=== PATIENT | male | born 1935 | race Caucasian/White ===

== ENCOUNTER 2018-11-21 08:15 | Inpatient (IN) ==
[2018-11-21] MEDS ORDERED: Aspirin 81 MG TAB.CHEW PO ONE (08:20)
--- NOTE | 2018-11-21 08:38 | Emergency Department Note ---
Disposition Clinical Impression: Chest pain Qualifiers: Chest pain type: unspecified Qualified Code(s): R07.9 - Chest pain, unspecified Disposition: Admitted As Inpatient Condition: Fair Time of Disposition: 10:22 Chest Pain HPI - General Chief Complaint: ED Chest Pain Stated Complaint: cp Time Seen by Provider: 11/21/18 08:20 Source: patient Mode of arrival: EMS Limitations: no limitations Vital Signs Reviewed: Yes Nursing Notes Reviewed: Yes - History of Present Illness HPI Narrative: Alert and oriented nontoxic-appearing 83-year-old male with a history of CAD (cardiac stents 2 on aspirin and Plavix), and hypertension presents by EMS from home for evaluation of abrupt onset of left-sided chest pressure. He states he was walking back from the restroom when the pain began. The pain did not radiate. He had taken 3 nitroglycerin tablets at home without relief. At that time, he decided to call EMS. EMS administered 4 baby aspirin in route. Upon his arrival, the patient states that his pain is nearly resolved. He denies any associated shortness of breath, productive cough, fever, chills, nausea, vomiting, diaphoresis, abdominal pain, pain with inspiration, hemoptysis, or pain/swelling of the lower extremities. Pt complaint: chest pain Onset (ago): Just [employer] Duration: other (Nearly resolved) Onset: during exertion Pain Location: left chest Severity scale (1-10): 2 Pain Radiation: none Worsens with: nothing Associated symptoms: Denies: nausea, vomiting, diaphoresis, dyspnea, syncope, pa lpitations, fever, cough, leg swelling Treatments prior to arrival chest pain: aspirin, nitroglycerin - Related Data Home Medications Medication Instructions Recorded Confirmed Atenolol [Tenormin] 50 mg PO DAILY 11/21/18 11/21/18 Clopidogrel [Plavix] 75 mg PO DAILY 11/21/18 11/21/18 Colchicine [Mitigare] 0.6 mg PO DAILY 11/21/18 11/21/18 Isosorbide MONOnitrate [Isosorbide 40 mg PO BID 11/21/18 11/21/18 Mononitrate] Nitroglycerin [Nitrostat] 0.4 mg SL PRN PRN 11/21/18 11/21/18 Allergies Allergy/AdvReac Type Severity Reaction Status Date / Time No Known Allergies Allergy Verified 11/21/18 08:41 All systems ED: reviewed and negative except as stated. Review of Systems: As Per HPI Constitutional: Denies: fever, chills, weakness, weight change Eyes: Denies: eye pain, eye discharge, vision change ENT ED: Denies: ear pain, throat pain, dental pain, hearing loss, epistaxis, congestion, dysphagia Cardiovascular: Reports: as per HPI, chest pain. Denies: palpitations, dyspnea on exertion, edema, syncope Respiratory: Denies: cough, dyspnea, wheezes, hemoptysis, stridor Gastrointestinal: Denies: abdominal pain, nausea, vomiting, diarrhea, constipation, hematemesis, melena, hematochezia Genitourinary: Denies: urgency, dysuria, frequency, hematuria Musculoskeletal: Denies: back pain, neck pain, arthralgia, myalgia Integumentary: Denies: rash, abrasion, lesions Neurological: Denies: headache, weakness, numbness, paresthesias, confusion, abnormal gait, vertigo Psychiatric: Denies: anxiety, depression, suicidal thoughts, homicidal thoughts, auditory hallucinations, visual hallucinations Endocrine: Denies: fatigue Hematological/Lymphatic: Denies: easy bleeding, easy bruising Allergic/Immunologic: Denies: facial swelling, urticaria Chest Pain PMH - Past Medical History Medical history: Reports: coronary artery disease, hyperlipidemia, hypertension, myocardial infarction Psychiatric history: Reports: no psych history - Social History Smoking Status: Never smoker Alcohol use: Reports: occasionally Drug use: Reports: none Physical Exam - General Limitations: no limitations General appearance: alert, in no apparent distress - Head Head exam: atraumatic, normocephalic, normal inspection - Eye Eye exam: Present: normal appearance, PERRL, EOMI. Absent: conjunctival injection - ENT ENT exam: mucous membranes moist - Neck Neck exam: Present: normal inspection, full ROM - Chest Chest inspection: Present: normal inspection, symmetric chest wall rise - Respiratory Respiratory exam: Present: normal lung sounds bilaterally. Absent: respiratory distress, wheezes, stridor, accessory muscle use, prolonged expiratory phase - Cardiovascular Cardiovascular exam: Present: regular rate, normal rhythm, normal heart sounds - Abdominal Exam Abdominal exam: Present: soft, Non-Tender, normal bowel sounds. Absent: distention, guarding, rebound, rigidity - Extremities Exam Extremities exam: Present: normal inspection, full ROM. Absent: pedal edema - Neurological Exam Neurological exam: Present: alert, oriented X3 - Psychiatric Psychiatric exam: Present: normal affect, normal mood - Skin Skin exam: Present: warm, dry, intact, normal color. Absent: rash, cyanosis, diaphoresis, pallor, mottled Course Course Narrative: Spoke with Dr. Brar the hospitalist service who agrees to accept the patient for admission to the hospitalist care for chest pain rule out. Vital Signs Temperature 97.5 F L 11/21/18 08:26 Pulse Rate 53 11/21/18 08:26 Respiratory Rate 18 11/21/18 08:26 Blood Pressure 161/72 11/21/18 08:26 O2 Sat by Pulse Oximetry 100 11/21/18 08:26 Temperature 97.5 F L 11/21/18 08:26 Pulse Rate 57 11/21/18 09:30 Respiratory Rate 16 11/21/18 09:30 Blood Pressure 159/73 11/21/18 09:30 O2 Sat by Pulse Oximetry 100 11/21/18 09:30 Oxygen Delivery Oxygen Delivery Room Air Chest Pain - Medical Records Medical records reviewed: Yes I reviewed the patient's medical records. - Lab Data Lab results reviewed: Yes I reviewed the patient's lab results. Lab results narrative: Lab Results 11/21/18 11/21/18 11/21/18 Range/Units 08:32 08:32 08:32 WBC 7.2 (4.3-11.1) K/mcL RBC 4.64 (4.19-5.50) M/mcL Hgb 14.2 (12.9-16.9) g/dL Hct 42.4 (37.5-50.1) % MCV 91.4 (83.0-100.0) fL MCH 30.6 (28.0-33.3) pg MCHC 33.5 (31.6-35.5) g/dL RDW 13.2 (11.5-14.5) % Plt Count 127 L (140-400) K/mcL MPV 10.8 (9.4-12.4) fL Immature Gran % 0.3 (0-4) % Seg Neutrophils % 44.9 % Lymphocytes % 41.9 % Monocytes % 11.4 % Eosinophils % 1.2 % Basophils % 0.3 % Neutrophils # 3.2 (1.6-8.9) K/mcL Lymphocytes # 3.0 (0.6-4.6) K/mcL Monocytes # 0.8 (0.0-1.3) K/mcL Eosinophils # 0.1 (0.0-0.6) K/mcL Basophils # 0.0 (0.0-0.2) K/mcL PT 11.2 (9.4-12.1) Seconds INR 1.0 APTT 29.2 (26.0-36.0) Seconds Sodium (136-145) mEq/L Potassium (3.5-5.1) mEq/L Chloride (98-107) mEq/L Carbon Dioxide (23-29) mEq/L BUN (8-23) mg/dL Creatinine (0.70-1.30) mg/dL Est GFR ( Amer) (> 60) Est GFR (Non-Af Amer) (> 60) BUN/Creatinine Ratio (6-26) Glucose (70-105) mg/dL Calculated Osmolality (280-300) Calcium (8.6-10.3) mg/dL Troponin I (< 0.04) ng/mL B-Natriuretic Peptide 253 H (Less than 100) pg/mL 11/21/18 Range/Units 08:32 WBC (4.3-11.1) K/mcL RBC (4.19-5.50) M/mcL Hgb (12.9-16.9) g/dL Hct (37.5-50.1) % MCV (83.0-100.0) fL MCH (28.0-33.3) pg MCHC (31.6-35.5) g/dL RDW (11.5-14.5) % Plt Count (140-400) K/mcL MPV (9.4-12.4) fL Immature Gran % (0-4) % Seg Neutrophils % % Lymphocytes % % Monocytes % % Eosinophils % % Basophils % % Neutrophils # (1.6-8.9) K/mcL Lymphocytes # (0.6-4.6) K/mcL Monocytes # (0.0-1.3) K/mcL Eosinophils # (0.0-0.6) K/mcL Basophils # (0.0-0.2) K/mcL PT (9.4-12.1) Seconds INR APTT (26.0-36.0) Seconds Sodium 140 (136-145) mEq/L Potassium 3.7 (3.5-5.1) mEq/L Chloride 108 H (98-107) mEq/L Carbon Dioxide 23 (23-29) mEq/L BUN 16 (8-23) mg/dL Creatinine 0.97 (0.70-1.30) mg/dL Est GFR ( Amer) > 60 (> 60) Est GFR (Non-Af Amer) > 60 (> 60) BUN/Creatinine Ratio 16 (6-26) Glucose 93 (70-105) mg/dL Calculated Osmolality 291 (280-300) Calcium 9.5 (8.6-10.3) mg/dL Troponin I < 0.03 (< 0.04) ng/mL B-Natriuretic Peptide (Less than 100) pg/mL Result diagrams: 11/21/18 08:32 11/21/18 08:32 Lab Results 11/21/18 11/21/18 11/21/18 Range/Units 08:32 08:32 08:32 WBC 7.2 (4.3-11.1) K/mcL RBC 4.64 (4.19-5.50) M/mcL Hgb 14.2 (12.9-16.9) g/dL Hct 42.4 (37.5-50.1) % MCV 91.4 (83.0-100.0) fL MCH 30.6 (28.0-33.3) pg MCHC 33.5 (31.6-35.5) g/dL RDW 13.2 (11.5-14.5) % Plt Count 127 L (140-400) K/mcL MPV 10.8 (9.4-12.4) fL Immature Gran % 0.3 (0-4) % Seg Neutrophils % 44.9 % Lymphocytes % 41.9 % Monocytes % 11.4 % Eosinophils % 1.2 % Basophils % 0.3 % Neutrophils # 3.2 (1.6-8.9) K/mcL Lymphocytes # 3.0 (0.6-4.6) K/mcL Monocytes # 0.8 (0.0-1.3) K/mcL Eosinophils # 0.1 (0.0-0.6) K/mcL Basophils # 0.0 (0.0-0.2) K/mcL PT 11.2 (9.4-12.1) Seconds INR 1.0 APTT 29.2 (26.0-36.0) Seconds Sodium (136-145) mEq/L Potassium (3.5-5.1) mEq/L Chloride (98-107) mEq/L Carbon Dioxide (23-29) mEq/L BUN (8-23) mg/dL Creatinine (0.70-1.30) mg/dL Est GFR ( Amer) (> 60) Est GFR (Non-Af Amer) (> 60) BUN/Creatinine Ratio (6-26) Glucose (70-105) mg/dL Calculated Osmolality (280-300) Calcium (8.6-10.3) mg/dL Troponin I (< 0.04) ng/mL B-Natriuretic Peptide 253 H (Less than 100) pg/mL 11/21/18 Range/Units 08:32 WBC (4.3-11.1) K/mcL RBC (4.19-5.50) M/mcL Hgb (12.9-16.9) g/dL Hct (37.5-50.1) % MCV (83.0-100.0) fL MCH (28.0-33.3) pg MCHC (31.6-35.5) g/dL RDW (11.5-14.5) % Plt Count (140-400) K/mcL MPV (9.4-12.4) fL Immature Gran % (0-4) % Seg Neutrophils % % Lymphocytes % % Monocytes % % Eosinophils % % Basophils % % Neutrophils # (1.6-8.9) K/mcL Lymphocytes # (0.6-4.6) K/mcL Monocytes # (0.0-1.3) K/mcL Eosinophils # (0.0-0.6) K/mcL Basophils # (0.0-0.2) K/mcL PT (9.4-12.1) Seconds INR APTT (26.0-36.0) Seconds Sodium 140 (136-145) mEq/L Potassium 3.7 (3.5-5.1) mEq/L Chloride 108 H (98-107) mEq/L Carbon Dioxide 23 (23-29) mEq/L BUN 16 (8-23) mg/dL Creatinine 0.97 (0.70-1.30) mg/dL Est GFR ( Amer) > 60 (> 60) Est GFR (Non-Af Amer) > 60 (> 60) BUN/Creatinine Ratio 16 (6-26) Glucose 93 (70-105) mg/dL Calculated Osmolality 291 (280-300) Calcium 9.5 (8.6-10.3) mg/dL Troponin I < 0.03 (< 0.04) ng/mL B-Natriuretic Peptide (Less than 100) pg/mL - Radiology Data Radiology results reviewed: Yes I reviewed the patient's radiology results. Chest X-Ray 11/21/18 08:20 IMPRESSION: Mild cardiomegaly, without acute cardiopulmonary process seen. D/ / Florentino Thomas MD / Florentino Thomas MD Interpreting Provider: Florentino Thomas MD - EKG Data EKG attestation: Yes I reviewed and interpreted this EKG. EKG results narrative: EKG shows a sinus rhythm with a right bundle branch block and premature atrial complexes at a rate of 56. [place] interval 138, QRS duration 136, QT/QTc interval 454/439. No ST elevations or significant depressions noted. No significant change in morphology when compared to an EKG dated from 02/04/2006. Heart Score - Score History: Moderately Suspicious EKG: Non Specific repolarisation Disturbance Age: Greater than 65 Risk Factors: 1-2 risk factors Troponin: Less than normal limit HEART Score Total: 5
[2018-11-21] MEDS ORDERED: *HR* FentaNYL (PF) 100 MCG/2 ML VIAL IVP ONE (08:42)
[2018-11-21 09:06] LABS: Basophils % 0.3 %; Eosinophils # 0.1 K/mcL (0.0-0.6); Eosinophils % 1.2 %; Hematocrit 42.4 % (37.5-50.1); Hemoglobin 14.2 g/dL (12.9-16.9); Immature Granulocytes % 0.3 % (0-4); Lymphocytes % 41.9 %; Mean Corpuscular HGB Conc 33.5 g/dL (31.6-35.5); Mean Corpuscular Hemoglobin 30.6 pg (28.0-33.3); Mean Corpuscular Volume 91.4 fL (83.0-100.0); Mean Platelet Volume 10.8 fL (9.4-12.4); Monocytes # 0.8 K/mcL (0.0-1.3); Monocytes % 11.4 %; Neutrophils # 3.2 K/mcL (1.6-8.9); Platelet Count 127 K/mcL (140-400); Red Blood Count 4.64 M/mcL (4.19-5.50); Red Cell Distribution Width 13.2 % (11.5-14.5); Segmented Neutrophils % 44.9 %; White Blood Count 7.2 K/mcL (4.3-11.1)
[2018-11-21 09:08] LABS: Prothrombin Time 11.2 Seconds (9.4-12.1)
[2018-11-21 09:11] LABS: Activated Partial Thrombo Time 29.2 Seconds (26.0-36.0)
[2018-11-21 09:20] LABS: BUN/Creatinine Ratio 16 (6-26); Blood Urea Nitrogen 16 mg/dL (8-23); Calcium 9.5 mg/dL (8.6-10.3); Carbon Dioxide 23 mEq/L (23-29); Chloride 108 mEq/L (98-107); Glucose 93 mg/dL (70-105); Osmolality,Calculated 291 (280-300); Potassium 3.7 mEq/L (3.5-5.1); Sodium 140 mEq/L (136-145); eGFR For African Americans > 60 (> 60); eGFR For Non-African Americans > 60 (> 60)
[2018-11-21 09:21] LABS: Troponin I < 0.03 ng/mL (< 0.04)
[2018-11-21] MEDS ORDERED: Ondansetron 4 MG/2 ML VIAL IVP PRN (10:24)
[2018-11-21] MEDS ORDERED: Naloxone 0.4 MG/ML INJ IVP PRN (10:24)
[2018-11-21] MEDS ORDERED: Nitroglycerin 0.4 MG TAB.SUBL SL PRN (10:26)
--- NOTE | 2018-11-21 10:34 | Internal Med History&Physical ---
Date of Encounter: 11/21/18 Time of Encounter: 10:17 Internal Medicine - H&P: HPI Chief complaint: CP Admitted From: Emergency Dept History of present illness: Albert Thornton is an 83 M w hx CAD s/p PCIx2 (last 12/2016 MOON to mLAD), HTN, HLD, colon cancer s/p resection '14, who p/w chest pain. Pain is described as pressure-like, substernal, which occurred while he was walking from the bathroom back to his bedroom. He occasionally gets anginal chest pain like this, for which he says he takes about 1 nitro tab a month with good relief. However, today he took 3 nitro tabs without relief so he called EMS. Pain is nonradiating, and there is no N/V, diaphoresis, or SOB. No fevers or leg swelling. He currently takes DAPT and reports compliance. First stent in 2006 at [facility], then second stent in 2017 at [facility] in [place]. In the ED, vitals T 97.5, HR 50s, RR 18, SBP 160-180, satting 100% on RA. Initial trop negative, BNP 200s. CXR unremarkable. ECG w stable RBBB. Pain improved prior to giving any nitro or opioids in ED. Past medical, surgical, social, and family histories reviewed and updated as below, w addition to FHx of both parents and younger brother of MIs. Past Med Surg Social Fam HX - Past Medical History Medical history: cancer, coronary artery disease, hypertension, myocardial infarction Additional medical history: Gout. Colon Cancer Psychiatric history: no psych history - Social History Smoking Status: Never smoker Alcohol use: occasionally Drug use: none Internal Medicine - H&P: Meds Atenolol [Tenormin] 50 mg PO DAILY 11/21/18 [History] Clopidogrel [Plavix] 75 mg PO DAILY 11/21/18 [History] Colchicine [Mitigare] 0.6 mg PO DAILY 11/21/18 [History] Isosorbide MONOnitrate [Isosorbide Mononitrate] 40 mg PO BID 11/21/18 [History] Nitroglycerin [Nitrostat] 0.4 mg SL PRN PRN 11/21/18 [History] Allergy/AdvReac Type Severity Reaction Status Date / Time No Known Allergies Allergy Verified 11/21/18 08:41 All Systems PM: A 10-system review of systems was performed and is negative for pertinent findings except as documented above in the HPI. - Constitutional Vitals: Temp Pulse Resp BP Pulse Ox 97.5 F L 57 16 159/73 100 11/21/18 08:26 11/21/18 09:30 11/21/18 09:30 11/21/18 09:30 11/21/18 09:30 Exam: General: NAD, good eye contact, well appearing, elderly Head: Atraumatic, normocephalic. Face symmetric Eyes: EOMI, sclerae anicteric ENT: Mucous membranes moist. Normal oral mucosa and dentition. Trachea midline. Thoracic: No visible chest wall deformities. Normal breath sounds b/l, no wheezing or crackles Cardio: Normal S1 and S2, regular rate and rhythm, no murmurs Abdomen: Soft, nontender, nondistended Extremities: Warm, well perfused. DP pulses 2+ b/l. No clubbing, cyanosis. No edema Skin: Intact. No rashes, bruises, or ulcers Neuro: Awake, fully oriented. Good memory, concentration, attention. Speech fluent. CN II-XII grossly intact. Strength 5/5 in b/l UE and LE Internal Med - H&P Results - Labs CBC & Chem 7: 11/21/18 08:32 11/21/18 08:32 Labs: Short CBC 11/21/18 Range/Units 08:32 WBC 7.2 (4.3-11.1) K/mcL Hgb 14.2 (12.9-16.9) g/dL Hct 42.4 (37.5-50.1) % Plt Count 127 L (140-400) K/mcL Neutrophils # 3.2 (1.6-8.9) K/mcL BMP 11/21/18 08:32 Sodium 140 Potassium 3.7 Chloride 108 H Carbon Dioxide 23 BUN 16 Creatinine 0.97 Glucose 93 Calcium 9.5 Cardiac Enzymes 11/21/18 Range/Units 08:32 Troponin I < 0.03 (< 0.04) ng/mL - Impressions ITS Impressions Chest X-Ray 11/21/18 08:20 IMPRESSION: Mild cardiomegaly, without acute cardiopulmonary process seen. D/ / Florentino Thomas MD / Florentino Thomas MD Interpreting Provider: Florentino Thomas MD - Summary of Assessment and Plan Summary of Assessment and Plan: Albert Thornton is an 83 M w hx CAD s/p PCIx2 (last 12/2016 MOON to mLAD), HTN, HLD, colon cancer s/p resection '14, who p/w angina. Chest pain: ECG unremarkable, trop x1 negative. HEART score - trend trops - tele - TTE - Lexiscan tomorrow if trops negative - Cardio consultation CAD s/p PCIx2, HLD: home ASA, Plavix HTN: home atenolol 50 daily Gout: daily colchicine 0.6 PPx: lovenox Tele: yes Activity: up ad devonte FEN: cardiac then NPO@MN, no MIVF Lines: PIV Consults: Cardio Code: [id number] Dispo: obs for JOSE, anticipate 1 day, will be homegoing
--- NOTE | 2018-11-21 15:34 | Cardiology Consult Note ---
Date of Encounter: 11/21/18 Time of Encounter: 15:28 Assessment and Plan (1) Chest pain Current Visit: Yes Status: Acute Atypical type chest pain with recent PCI to the mid LAD and according to patient was told recently at outside hospital [place] no further options for PCI due to diffuse disease and high risk coronary artery disease. Will obtain records keep patient nothing by mouth until repeat troponin is available. Consider LHC versus optimizing medical management according to records. Qualifiers: Chest pain type: other chest pain Qualified Code(s): R07.89 - Other chest pain; R07.8 - Other chest pain Discussion w patient/family: The assessment and plan as outlined above was discussed with the patient and/or family members who expressed understanding and agreement. All questions were answered. Thank you for involving us in the care of your patient. Please call with any questions. History of Present Illness Consult date: 11/21/18 Chief complaint: chest pain History of present illness: Mr. Thornton is a 83 year old male with history of coronary artery disease status post-PCI in 2017 and recently in 2017 at an outside hospital in [place] to the mid LAD. According to the patient he states he does not have any further options for PCI. In December 2016 during his last LHC that he was high risk for any further PCI. Will obtain records prior to any further testing. Currently has on and off waxing waning chest pain. Will keep nothing by mouth and continue to trend cardiac markers as all markers were unremarkable at this time. An echocardiogram also be obtained to rule out structural heart abnormalities and regional wall motion abnormalities to help risk stratify him further. If troponins are unremarkable patient may pursue a clear diet until records are available for review. Chest pains described as retrosternal associated with some shortness of breath started yesterday. Patient continues on dual and antiplatelet therapy and is compliant. EKG shows right bundle-branch block Past Med Surg Social Fam HX - Past Medical History Medical history: cancer, coronary artery disease, hypertension, myocardial infarction Additional medical history: Gout. Colon Cancer Psychiatric history: no psych history - Past Surgical History Surgical History: cancer surgery Additional surgical history: 3 back surgeries, appendectomy, stentsx2 - Social History Smoking Status: Never smoker Alcohol use: occasionally Drug use: none - Family History Mother Living Status: Age at : 87 Cause of : Heart issues Hx Family Cardiac Disorders: Yes (CABG) Father Living Status: Age at : 89 Cause of : Heart Attack Brother Hx Family Cancer: Yes (leukemia) Sister Hx Family Cancer: Yes (Brain) Medications and Allergies Atenolol [Tenormin] 50 mg PO DAILY 11/21/18 [History] Clopidogrel [Plavix] 75 mg PO DAILY 11/21/18 [History] Colchicine [Mitigare] 0.6 mg PO DAILY 11/21/18 [History] Isosorbide MONOnitrate [Isosorbide Mononitrate] 40 mg PO BID 11/21/18 [History] Nitroglycerin [Nitrostat] 0.4 mg SL PRN PRN 11/21/18 [History] Allergy/AdvReac Type Severity Reaction Status Date / Time No Known Allergies Allergy Verified 11/21/18 08:41 All Systems Review: The remainder of the systems were reviewed and are negative Physical Examination Vital Signs, Last 4 Hours Temp Pulse Resp BP Pulse Ox 11/21/18 14:40 98.0 F 55 16 177/83 98 General: Conversant, No Apparent Distress HEENT: Atraumatic, Normocephaly, Mucus Membranes Moist Neck: No JVD, Normal carotid pulses Cardiac: Reg Rate and Rhythm, Normal S1 and S2, No Murmur Lungs: Normal Breath Sounds, No Wheeze, Rales, Rhonchi Neuro: Alert and responsive, No focal deficits noted Abdomen: Soft, Non-Tender Skin: No rashes noted on visualized skin Musculoskeletal: No Chest Wall Tenderness Extremities: No Clubbing, No Cyanosis, No Edema, Normal Pulses Results 11/21/18 08:32 11/21/18 08:32 Lab Results 11/21/18 11/21/18 11/21/18 08:32 08:32 08:32 WBC 7.2 Hgb 14.2 Hct 42.4 Plt Count 127 L INR 1.0 APTT 29.2 Sodium Potassium Chloride Carbon Dioxide BUN Creatinine Glucose Calcium Troponin I B-Natriuretic Peptide 253 H 11/21/18 11/21/18 08:32 12:24 WBC Hgb Hct Plt Count INR APTT Sodium 140 Potassium 3.7 Chloride 108 H Carbon Dioxide 23 BUN 16 Creatinine 0.97 Glucose 93 Calcium 9.5 Troponin I < 0.03 < 0.03 B-Natriuretic Peptide Consult Discharge Plan - Plan [facility]errals: [facility] [Primary Care Provider[facility] -
[2018-11-21] MEDS: Nitroglycerin 25 MG/250 ML INFUS..BTL IVC SCH (16:38)
[2018-11-21] MEDS ORDERED: ISOSORBIDE MONONITRATE PO SCH (21:00)
[2018-11-21] MEDS: Acetaminophen 325 MG TABLET PO PRN (22:03)
[2018-11-21] MEDS: Isosorbide MONOnitrate (24 HR) 30 MG TAB.ER.24H PO SCH (22:04)
[2018-11-22 01:22] LABS: Hematocrit 43.4 % (37.5-50.1); Hemoglobin 14.1 g/dL (12.9-16.9); Mean Corpuscular HGB Conc 32.5 g/dL (31.6-35.5); Mean Corpuscular Hemoglobin 29.9 pg (28.0-33.3); Mean Corpuscular Volume 91.9 fL (83.0-100.0); Mean Platelet Volume 10.3 fL (9.4-12.4); Platelet Count 112 K/mcL (140-400); Red Blood Count 4.72 M/mcL (4.19-5.50); Red Cell Distribution Width 13.2 % (11.5-14.5); White Blood Count 6.1 K/mcL (4.3-11.1)
[2018-11-22 01:44] LABS: BUN/Creatinine Ratio 17 (6-26); Blood Urea Nitrogen 15 mg/dL (8-23); Calcium 9.2 mg/dL (8.6-10.3); Carbon Dioxide 22 mEq/L (23-29); Chloride 110 mEq/L (98-107); Chol/HDL Ratio 3.6 (0-4.9); Cholesterol 186 mg/dL (< 200); Glucose 84 mg/dL (70-105); HDL Cholesterol 52 mg/dL (40-59); LDL Cholesterol,Calculated 107 mg/dL (0-99); Magnesium 1.9 mg/dL (1.6-2.6); Osmolality,Calculated 290 (280-300); Potassium 4.2 mEq/L (3.5-5.1); Sodium 140 mEq/L (136-145); Triglycerides 137 mg/dL (< 150); Troponin I < 0.03 ng/mL (< 0.04); eGFR For African Americans > 60 (> 60); eGFR For Non-African Americans > 60 (> 60)
[2018-11-22] MEDS: Acetaminophen 325 MG TABLET PO PRN (06:45)
[2018-11-22] MEDS: Colchicine 0.6 MG TABLET PO SCH (07:44)
[2018-11-22] MEDS: Isosorbide MONOnitrate (24 HR) 30 MG TAB.ER.24H PO SCH ×2 (07:44→22:02)
--- NOTE | 2018-11-22 09:27 | Event Note ---
Date of Encounter: 11/22/18 Time of Encounter: 09:00 - Cardiology Event Note Patient with continued chest pain despite nitro drip. Recommend LHC for unstable angina. Risks versus benefits of LHC explained to patient who states understanding and agreeable to proceed. Troponins negative x5. TTE with LVEF preserved, no SWMA. Of note, code statud [id number], patient agreeable for full code for LHC and for 24 hours after. Patient with continued 5/10 chest pain. Recommend further titration of nitro for chest pain. Further recs pending LHC. HAS-BLED Score - Score Hypertension: Uncontrolled,>160 mmhg systolic Elderly: Age>65 years Medication usage predisposing to bleeding: Antiplatelet agents, NSAIDs, Anticoagulants Score: 3
--- NOTE | 2018-11-22 11:00 | Pre-Sedation Evaluation ---
Pre-sedation evaluation - Pre-sedation checklist Date of procedure: 11/22/18 Procedure: [facility] Recent Vitals: Last Vital Signs Temp 97.5 F L 11/21/18 22:00 Pulse 54 11/22/18 04:10 Resp 56 11/22/18 06:50 BP 164/86 11/22/18 06:50 Pulse Ox 97 11/22/18 06:50 H&P (including ROS) documented in medical record: Yes Previous reaction to sedatives/anesthetics: No Dietary Status: NPO after Midnight Airway Assessment: Patient can open mouth completely, TMJ function normal ASA Classification *see protocol: CLASS II-Mild systemic disease Plan of Care: Pt appropriate candidate for procedure/moderate/conscious sedation, Risks/benefits of procedure/sedation discussed w/ patient/family Cardiac Registry (Cardio Only) - Functional Capacity Functional Capacity: >=4 METS with symptoms - Clincal Frailty Scale Clinical Frailty Scale: Managing Well
[2018-11-22] MEDS: Aspirin Enteric Coated 81 MG Tablet PO SCH (11:38)
[2018-11-22] MEDS ORDERED: Heparin 1,000 UNITS/500 mL 500 ML ONE (11:47)
[2018-11-22] MEDS ORDERED: *HR* FentaNYL (PF) 100 MCG/2 ML VIAL ONE (11:47)
[2018-11-22] MEDS ORDERED: Verapamil 5 MG/2 ML VIAL ONE (11:47)
[2018-11-22] MEDS ORDERED: *HR* Heparin 10,000 UNIT/10 ML VIAL ONE (11:47)
[2018-11-22] MEDS ORDERED: *HR* Midazolam HCl 2 MG/2 ML VIAL ONE (11:47)
[2018-11-22] MEDS ORDERED: 0.9 % Sodium Chloride 1,000 ML ONE (11:47)
[2018-11-22] MEDS ORDERED: Iopamidol 125 ML INFUS..BTL ONE (11:48)
[2018-11-22] MEDS ORDERED: Nitroglycerin 1,000 MCG/10 ML VIAL IV ONE (11:48)
--- NOTE | 2018-11-22 13:00 | Invasive Diagnostic Lab Proc ---
Name: Albert Thornton Date of Study: 11/22/2018 Date: 1935 Ht: 70.1in Medical Record#: [id number] Age: 83 Wt: 176.37lb Gender: Male BSA: 1.98 Order #: [id number] BMI: 25.25 Physicians Procedure Physician: Noam Lloyd MD, [facility] Referring MD: Referring MD: Staff Name Position Time In Ayanna Russo RN Monitor 12:11 PM Lidia Leos RN Engine Wiper 12:11 PM Sparkle Garay RT (R) Scrub 12:11 PM Pina Nguyen RT (R) Scrub 12:11 PM Procedures Performed Procedure L HRT ARTERY/VENTRICLE ANGIO Pre-Procedure Checklist Informed consent is complete signed and on chart. H&P is on chart. ID band is on and ID verified with patient. Patient NPO for procedure The procedure was described for the patient and questions were answered. Blood Pressure: 164/86 ECG is on chart. Rhythm: NSR Plan of Care Patient will tolerate the procedure without complications. Adequate level of comfort will be maintained. Hemodynamics will remain stable Patient will recover from procedure without complications. Respiratory function will be maintained. Cardiac rhythm will remain stable. Patient temperature will be maintained. Patient and/or family have verbalized understanding of the procedure. Patient Education Chief Complaint/Reason for Test: Cardiac Cath Developmental Category: Geriatric (65+ years) Developmentally Appropriate for Age: Yes Learning Barriers: None Education Needs: Procedure Education Method: Verbal Information Taught: Cardiac Cath Educational Evaluation: Able to repeat information Intravenous Access Time IV Size Location DC'd Fluid/Drip Rate Units RN 20g 1 03/24" Patent On Arrival Rt Antecubital 0.9NaCl Allergies No Known Allergies NKDA Vital Signs Time BP (mmHg) HR (bpm) O2 Sat. RR (bpm) LOC 12:16 PM / % 5 = Fully awake and oriented or at pre-proc level 12:16 PM / % 4 = Oriented but drowsy 12:17 PM 171 / 80 59 98 % 16 12:21 PM 152 / 78 58 95 % 19 12:26 PM 147 / 74 58 99 % 15 12:31 PM 140 / 69 60 94 % 16 12:36 PM 157 / 78 67 96 % 25 Procedural Medications Time Medication Dose Units Method Given By 12:15 PM Oxygen 2 L/min nasal cannula Lidia Leos RN 12:17 PM Versed 2 mg Intravenous Lidia Leos RN 12:17 PM Fentanyl 50 mcg Intravenous Lidia Leos RN 12:23 PM Lidocaine 2% 1 ml Subcutaneous Noam Lloyd MD, [facility] 12:25 PM Heparin 4000 units Nitroglycerin 200 mcg Verapamil 2.5 mg Intraarterial Noam Lloyd MD, [facility] ASA Classification: CLASS II- Mild systemic disease (i.e. well-controlled diabetes, hypertension, asthma, cigarette smoking) Ml Score Preprocedure Postprocedure Activity 2- Moves 4 extremities sustained head lift Activity 2- Moves 4 extremities sustained head lift Circulation 2- SBP +/= 20 points of pre-anesthetic level Circulation 2- SBP +/= 20 points of pre-anesthetic level Consciousness 2- Awake and alert oriented x 3 Consciousness 2- Awake and alert oriented x 3 O2 Saturation 2- Able to maintain O2 satruation of 92% on room air O2 Saturation 2- Able to maintain O2 satruation of 92% on room air Respiratory 2- Able to deep breathe and cough well Respiratory 2- Able to deep breathe and cough well Total Score 10 Total Score 10 Contrast Agent: Isovue Diagnostic Contrast: 54 ml Total Contrast: 54 ml Fluoro Dose: 22 mGy Procedure Log Time Note Enter By 12:11 PM Pt arrived to label stamper 2 at 12:11 [facility] 12:11 PM Ayanna Russo RN Position: Monitor Time in: 12:11 [facility] 12:11 PM Lidia Leos RN Position: Engine Wiper Time in: 12:11 [facility] 12:11 PM Sparkle Garay RT (R) Position: Scrub Time in: 12:11 [facility] 12:11 PM Pina Nguyen RT (R) Position: Scrub Time in: 12:11 [facility] 12:11 PM Patient charges- Angio tray pack, Navilyst 3mm J, Pulse Oximetry and ACIST tubing and transducer [facility] 12:12 PM Case Delayed No [facility] 12:15 PM CathStat 12:15 PM Vitals capture started with the following parameters, Patient=Adult, Interval=5 min, Initial Ktmxytzq=024 mmHg, Deflation Rate=3 mmHg, Cuff placed on Right Arm 12:15 PM Recorded ECG: HR=58 Condition=Condition 1 12:15 PM Meet and deshawn completed [facility] 12:15 PM Sign in performed according to hospital policy. Informed consent was obtained. [email or web address] 12:15 PM Hair removed from procedure site in procedure lab using clippers. Right wrist and Right groin prepped with Chloraprep by Pina Nguyen (R), then patient was draped. Skin intact. [email or web address] 12:15 PM Procedure start 12:15 [email or web address] 12:15 PM Time: 12:15 Oxygen on at 2 L/min per nasal cannula by Lidia Leos RN [facility] 12:16 PM Time: 12:16 Patient comfortable and pain free: Yes [email or web address] 12:16 PM Time: 12:16LOC: 5 = Fully awake and oriented or at pre-proc level [email or web address] 12:16 PM Recorded ECG: HR=60 Condition=Condition 1 12:17 PM HR=59 bpm, FFNH=256/80 mmhg, SpO2=98.0 %, Resp=16 B/min 12:17 PM Time: 12:17 Versed 2 mg Intravenous Given by Lidia Leos RN [facility] 12:17 PM Time: 12:17 Fentanyl 50 mcg Intravenous Given by Lidia Leos RN [facility] 12:20 PM ASA Class CLASS II- Mild systemic disease (i.e. well-controlled diabetes, hypertension, asthma, cigarette smoking) [email or web address] 12:21 PM Pressure channel 1 zeroed. 12:21 PM HR=58 bpm, LXYI=003/78 mmhg, SpO2=95 %, Resp=19 B/min 12:22 PM Time out was performed according to hospital policy. Conscious sedation and anesthesia was achieved (see medication log with in this report above) [facility] 12:23 PM Time: : 1 ml Lidocaine 2% to right radial Subcutaneous Given by Noam Lloyd MD, FACC [facility] 12:25 PM Access obtained by percutaneous puncture. 5Fr 10cm Terumo Glidesheath sheath placed in right Radial artery. [id number] avis 12:25 PM Time: 12:25 Patient given 4,000 units Heparin, 200 mcg Nitroglycerin, and 2.5 mg Verapamil Intraarterial by Noam Lloyd MD, FACC. This is given to reduce risk of vessel spasm and thrombosis. [facility] 12:25 PM 5Fr TIG [facility] 12:25 PM 0.035 260cm Navilyst 3mmJ wire [id number] [facility] 12:26 PM HR=58 bpm, LJFV=245/74 mmhg, SpO2=99.0 %, Resp=15 B/min 12:27 PM LCA angiography performed in multiple views. [facility] 12:27 PM Recorded Pressure: Ao, HR=59, Condition=Condition 1 (Aorta) Ao 117/68/90 12:31 PM HR=60 bpm, RYTW=122/69 mmhg, SpO2=94.0 %, Resp=16 B/min 12:31 PM Time: 12:16 Patient comfortable and pain free: Yes [facility] 12:31 PM Time: 12:16LOC: 4 = Oriented but drowsy avis 12:31 PM RCA angiography performed in multiple views. avis 12:31 PM Recorded Pressure: Ao, HR=61, Condition=Condition 1 (Aorta) Ao 122/68/92 12:32 PM Catheter removed [facility] 12:33 PM 5Fr Pigtail catheter inserted over the wire [facility] 12:34 PM Catheter crossed the aortic valve and was selectively placed in the left ventricle. Pressures recorded on pullback for left heart catheterization. [facility] 12:34 PM Recorded Pressure: LV, HR=80, Condition=Condition 1 (Left Ventricle) LV 130/-2/8 12:35 PM Recorded Pressure: LV, Ao, HR=69, Condition=Condition 1 (Left Ventricle) LV 153/2/9, (Aorta) Ao 150/68/101 12:35 PM Bolus angiogram of left Ventricle complete: 10 ml/sec for a total of 30 mls avi 12:35 PM Catheter removed [facility] 12:36 PM HR=67 bpm, CTZT=508/78 mmhg, SpO2=96.0 %, Resp=25 B/min 12:36 PM Coronary Dominance: right avi 12:38 PM Procedure completed at 12:38 11/22/2018 [facility] 12:38 PM Did you address JUDD flow and Dominance? YesCoronary Dominance: right avi 12:39 PM Sign out completed: Radiation Dose 176.13 mGy, 21.8 Gy/cm2 Fluoro Time: 3.1 Isovue 370 - 200ml contrast 54 ml given by Noam Lloyd MD, [facility]. Complications: None. The patient was discharged out of the r&d lab technician in stable condition. Sedation minutes 20. Cardiac Rehab Consult needed: Yes. Confirmed administered medications: Yes [facility] 12:39 PM Isovue 370 - 125ml,1 Bottle(s) used. [facility] 12:39 PM Arterial sheath pulled, Vasc Band closure device used and was Successful S/N. [facility] 12:39 PM 15 ml air in Vasc Band. [facility] 12:39 PM Estimated Blood Loss: minimal [facility] 12:40 PM Post Blood Pressure 157/78 [facility] 12:42 PM Information taught Cardiac Cath and Vasc Band [facility] 12:42 PM Education needs Procedure, Plan of Care, and Disease Process [facility] 12:42 PM Learning barriers :None [facility] 12:42 PM Education Methods Verbal [facility] 12:42 PM Education evaluation Able to repeat information [facility] 12:42 PM Site status No bleeding/ No Hematoma - Rt Wrist as reported by Sparkle Garay RT (R) at 12:42 [facility] 12:42 PM Opsite applied [facility] 12:43 PM Report given to Candice GARCIA Pt taken to 3B Room #63. 12:42 [facility] 12:43 PM Plavix, Effient or Brilinta given No [facility] 12:43 PM Delay to floor No [facility] 12:43 PM Patient out of room: 12:43 [facility] 12:43 PM Family placed in consult room. [facility] 12:43 PM Complications: None [facility] 12:45 PM Lesion found in Proximal RCA. Pre Stenosis: 65 Pre JUDD Flow: [facility] 12:45 PM Lesion found in Mid RCA. Pre Stenosis: 60 Pre JUDD Flow: [facility] 12:45 PM Lesion found in Distal RCA. Pre Stenosis: 70 Pre JUDD Flow: [facility] 12:45 PM Lesion found in Proximal LAD. Pre Stenosis: 80 Pre JUDD Flow: [facility] 12:46 PM Lesion found in Distal LAD. Pre Stenosis: 95 Pre JUDD Flow: [facility] 12:47 PM Lesion found in 1st Diagonal. Pre Stenosis: 90 Pre JUDD Flow: [facility] 12:47 PM Lesion found in Distal Circumflex. Pre Stenosis: 70 Pre JUDD Flow: [facility] 12:47 PM Lesion found in 1st Marginal. Pre Stenosis: 80 Pre JUDD Flow: [facility] 12:47 PM Proximal Left Anterior Descending Coronary Artery with 80% stenosis. If graft is supplying this territory, 0 % stenosis. [facility] 12:48 PM Mid/Distal Left Anterior Descending Coronary Artery and diagonal branches with 95% stenosis. If graft is supplying this area, 0 % stenosis [facility] 12:48 PM Circumflex, Obtuse Marginal, Left Posterior Descending, and Left Posterolateral Coronary Arteries with 80 % stenosis. If graft is supplying this area, 0 % stenosis [facility] 12:48 PM Right Coronary, Right Posterior Descending Arteries with Right Posterolateral and Acute Marginal branches with 70 % stenosis. If graft is supplying this area, 0 % stenosis [facility] 12:49 PM Cardiothoracic surgeon consulted by physician jeny Complications Complication None None Hemodynamics Pressures Site Systolic/A Wave Diastolic/V Wave Mean AO 117 68 90 AO 122 68 92 LV 130 -2 8 LV 153 2 9 AO 150 68 101 Post Procedure Information Blood Pressure: 157/78 mmHg Post procedural instructions were given Surgery consult for CABG Closure Device Time Device Success/Fail 11/22/2018 12:49:00 PM Mechanical Compression Successful Site Checks Time Location Status Staff Sheath In? Note 12:42 PM Rt Wrist No bleeding/ No Hematoma Sparkle Garay RT (R) Pulses Time Site Pre-Procedure Post-Procedure Note Bilateral radial 2+ Bilateral DP 2+ Updated by Pk Dodge RN on 11/22/2018 12:53:20 PM electronically signed on 11/22/2018 12:53:56 PM with status of Final
--- NOTE | 2018-11-22 13:46 | Internal Med Progress Note ---
Hospitalist Progress Note - Encounter Date of Encounter: 11/22/18 Time of Encounter: 13:44 - Subjective Interval History: Albert Thornton is an 83 M w hx CAD s/p PCIx2 (last 12/2016 MOON to mLAD), HTN, HLD, colon cancer s/p resection '14, who p/w chest pain. Pain is described as pressure-like, substernal, which occurred while he was walking from the bathroom back to his bedroom. He occasionally gets anginal chest pain like this, for which he says he takes about 1 nitro tab a month with good relief. However, today he took 3 nitro tabs without relief so he called EMS. Pain is nonradiating, and there is no N/V, diaphoresis, or SOB. No fevers or leg swelli ng. He currently takes DAPT and reports compliance. First stent in 2006 at [facility], then second stent in [address] [facility] in [place]. Patient continued to have substernal chest pain overnight, nitroglycerin drip was started with partial relief of symptoms. LHC was perfo rmed on 0 11/22 which revealed triple vessel disease, CT surgery was consulted. - Exam Vitals: Temp Pulse Resp BP Pulse Ox 97.8 F 63 16 144/76 99 11/22/18 11:10 11/22/18 11:10 11/22/18 11:10 11/22/18 11:10 11/22/18 11:10 Exam: General: NAD, good eye contact, well appearing, elderly Head: Atraumatic, normocephalic. Face symmetric Eyes: EOMI, sclerae anicteric ENT: Mucous membranes moist. Normal oral mucosa and dentition. Trachea midline. Thoracic: No visible chest wall deformities. Normal breath sounds b/l, no wheezing or crackles Cardio: Normal S1 and S2, regular rate and rhythm, no murmurs Abdomen: Soft, nontender, nondistended Extremities: Warm, well perfused. DP pulses 2+ b/l. No clubbing, cyanosis. No edema Skin: Intact. No rashes, bruises, or ulcers Neuro: Awake, fully oriented. Good memory, concentration, attention. Speech fluent. CN II-XII grossly intact. Strength 5/5 in b/l UE and LE - Assessment and Plan (1) Chest pain Current Visit: Yes Status: Acute Assessment and Plan: 83-year-old gentleman with severe CAD presented with unstable angina. LHC today showed severe triple-vessel disease. CT surgery was consulted. Continue current treatment with aspirin and Plavix. Continue beta brionna and imdur. Continue nitroglycerin drip. (2) CAD (coronary artery disease) Current Visit: No Status: Chronic Assessment and Plan: LHC showed severe triple-vessel disease, CT surgery was consulted. (3) HTN (hypertension) Current Visit: No Status: Chronic Assessment and Plan: BP controlled, continue current medications including Imdur and atenolol. (4) Gout Current Visit: No Status: Chronic Assessment and Plan: Continue colchicine. - Time Spent with Patient Total time spent is greater than 50% in coordination of care (as documented) at patient's floor/unit and/or counseling patient: Greater than 35 minutes Plan of Care Discussed with: patient Internal Medicine: Result - Labs CBC & Chem 7: 11/22/18 01:06 11/22/18 01:06 Labs: Short CBC 11/22/18 Range/Units 01:06 WBC 6.1 (4.3-11.1) K/mcL Hgb 14.1 (12.9-16.9) g/dL Hct 43.4 (37.5-50.1) % Plt Count 112 L (140-400) K/mcL BMP 11/22/18 01:06 Sodium 140 Potassium 4.2 Chloride 110 H Carbon Dioxide 22 L BUN 15 Creatinine 0.88 Glucose 84 Calcium 9.2 Cardiac Enzymes 11/21/18 11/22/18 11/22/18 Range/Units 17:53 01:06 01:06 Troponin I < 0.03 < 0.03 < 0.03 (< 0.04) ng/mL - ABG Interpretation ABG results: PT/INR, D-dimer PT 11.2 Seconds (9.4-12.1) 11/21/18 08:32 - Impressions Impressions Echocardiogram 11/21/18 10:38 Impressions: LVEF 65-70%. Moderate left ventricular diastolic dysfunction. Normal right ventricular structure and function. Mild-moderate tricuspid regurgitation. Mild pulmonic regurgitation. Mild pulmonary hypertension. Left Ventricular Wall Motion: Rest Echo Findings All wall segments showed normal motion. Findings: Study Quality * Technically adequate exam. ECG Findings * Sinus bradycardia. Left Ventricle * LVEF 65-70%. * Normal LV chamber size, wall thickness and systolic function. * Moderate left ventricular diastolic dysfunction. * Atypical septal motion consistent with bundle branch block. Right Ventricle * Normal right ventricular structure and function. Left Atrium * Normal left atrial size. Right Atrium * Normal right atrial size. Interatrial Septum * Interatrial septum not well evaluated. Aortic Valve * Trileaflet aortic valve. * Mildly calcified aortic valve leaflets. * Trace aortic regurgitation. * No aortic stenosis. Mitral Valve * Normal mitral valve structure. * No mitral stenosis. * Trace mitral regurgitation. Tricuspid Valve * Normal tricuspid valve structure. * No tricuspid stenosis. * Mild-moderate tricuspid regurgitation. * Estimated RVSP is 39 mmHg. * Estimated RA pressure is 3 mmHg. * Mild pulmonary hypertension. Pulmonic Valve * Pulmonic valve is not well visualized. * No pulmonic stenosis. * Mild pulmonic regurgitation. Aorta * Normally sized aortic root. Pericardium * The pericardium appears normal. IVC * The IVC is not dilated. * > 50% respiratory change Consult Discharge Plan - Plan [facility]errals: [facility] [Primary Care Provider] - (1) Chest pain Qualifiers: Chest pain type: other chest pain Qualified Code(s): R07.89 - Other chest pain; R07.8 - Other chest pain (2) CAD (coronary artery disease) Qualifiers: Coronary Disease-Associated Artery/Lesion type: [place] artery [place] vs. transplanted heart: [place] heart Associated angina: with unstable angina Qualified Code(s): I25.110 - Atherosclerotic heart disease of [place] coronary artery with unstable angina pectoris (3) HTN (hypertension) Qualifiers: Hypertension type: unspecified Qualified Code(s): I10 - Essential (primary) hypertension (4) Gout Qualifiers: Gout site: unspecified site Gout etiology: unspecified cause Chronicity: chronic Presence of tophus: without tophus Qualified Code(s): M1A.9XX0 - Chronic gout, unspecified, without tophus (tophi)
[2018-11-22] MEDS: *HR* Heparin 5,000 UNIT/ML VIAL SQ SCH ×2 (15:19→22:01)
--- NOTE | 2018-11-22 16:38 | Cardiothoracic Consult Note ---
Date of Encounter: 11/22/18 Time of Encounter: 16:26 Assessment and Plan (1) CAD (coronary artery disease) Current Visit: No Status: Chronic The patient is an 83-year-old hypertensive man with known CAD. He underwent PCI with stent placement in 2008 and again in 2017. He has had intermittent, exertional, nonradiating left precordial chest pain since his last stent placement which is usually is off quickly with sublingual nitroglycerin. Yesterday, the patient had left precordial chest pain which did not resolve after 3 nitroglycerin tablets. He was evaluated at [facility] emergency department and ruled out for an acute coronary syndrome. He was admitted for further cardiac workup. A transthoracic echocardiogram revealed an LVEF 70%. Subsequent cardiac catheterization revealed severe 3 vessel CAD and it LVEF 70%. Unfortunately, the LAD is severely diseased and probably not adequate for bypass. The OM1, distal LCx, and PDA could be bypassed. I discussed the patient's case with both Dr. John and Dr. Hinkle. Options for this patient include PCI with LCx and OM stent placement with medical management for CABG. The patient wishes to proceed with PCI and medical management at this time. The assessment and plan as outlined above was discussed with the patient and/or family members who expressed understanding and agreement. All questions were answered. Qualifiers: Coronary Disease-Associated Artery/Lesion type: [place] artery [place] vs. transplanted heart: [place] heart Associated angina: with unstable angina [place] lified Code(s): I25.110 - Atherosclerotic heart disease of [place] coronary artery with unstable angina pectoris - History of Present Illness Consult date: 11/22/18 Requesting physician: Noam Lloyd Consult reason: CABG evaluation Chief complaint: Unstable angina History of present illness: Mr. Thornton is a 83 year old hypertensive man with known CAD. His cardiac history dates back to 2008 which time he underwent PCI with RCA stent placement. He did well until 2017 when he began experiencing exertional, nonradiating left precordial chest pain. At that time, he underwent PCI with LAD stent placement at an outside hospital in [facility]. Since that time he has had episodic, exertional, nonradiating precordial chest pain requiring him to take sublingual nitroglycerin. Usually, the patient states that one sublingual nitroglycerin tablet will alleviate the symptoms; however, yesterday he had left precordial chest pain unresponsive to sublingual nitroglycerin. After taking 3 sublingual nitroglycerin tablets, he was evaluated at [facility] emergency department where he ruled out for an acute NSTEMI. He was admitted for further cardiac workup. The patient underwent a transthoracic echocardiogram which revealed an LVEF 65- 70% with moderate left ventricular diastolic dysfunction and normal right ventricular structure and function. Mild to moderate tricuspid regurgitation and mild pulmonary hypertension were noted. Cardiac catheterization performed today revealed severe 3 vessel CAD and an LVEF 70%. In particular, the patient has an 80% proximal LAD lesion (proximal to the LAD stent), a 70% mid LAD lesion, a 90% distal LAD lesion, a 90% proximal D1 lesion (small vessel), a 70% distal LCx lesion, an 80% proximal to mid OM1 lesion, a 60-70% proximal RCA lesion, a 60% mid RCA lesion, and a 70% distal RCA lesion. I have been asked to evaluate the patient for possible high risk CABG versus PCI. Past Med Surg Social Fam HX - Past Medical History Medical history: cancer, coronary artery disease, hypertension, myocardial infarction Additional medical history: Gout. Colon Cancer Psychiatric history: no psych history - Past Surgical History Surgical History: appendectomy, colectomy (Partial colectomy for adenocarcinoma), other (Lumbar laminectomy 3) - Social History Smoking Status: Never smoker Smokeless Tobacco Status: No Alcohol use: occasionally Drug use: none Occupational status: retired Current living situation: Home - Independent Activity Level: Independent ambulation Recent Out of Country Travel Within the Last 8 Weeks: No Exposure or Possible Exposure to Illness During Travel: No - Family History Mother Living Status: Age at : 87 Cause of : Heart issues Hx Family Cardiac Disorders: Yes (CABG) Father Living Status: Age at : 89 Cause of : Heart Attack Brother Hx Family Cancer: Yes (leukemia) Sister Hx Family Cancer: Yes (Brain) Medications and Allergies Atenolol [Tenormin] 50 mg PO DAILY 11/21/18 [History] Clopidogrel [Plavix] 75 mg PO DAILY 11/21/18 [History] Colchicine [Mitigare] 0.6 mg PO DAILY 11/21/18 [History] Isosorbide DInitrate [Isosorbide Dinitrate] 20 mg PO BID 11/21/18 [History] Lanolin Alcohol/Mo/W.pet/[place]ountain [Eucerin Creme] 1 appl TP DAILY PRN 11/21/18 [History] Nitroglycerin [Nitrostat] 0.4 mg SL PRN PRN 11/21/18 [History] Allergy/AdvReac Type Severity Reaction Status Date / Time No Known Allergies Allergy Verified 11/21/18 08:41 All Systems Review: The remainder of the systems were reviewed and are negative Physical Examination Vital Signs, Last 4 Hours Pulse BP Pulse Ox 11/22/18 14:25 55 124/62 94 11/22/18 13:55 54 125/71 95 11/22/18 13:40 58 126/73 96 11/22/18 13:27 58 141/73 96 11/22/18 13:11 60 142/72 96 11/22/18 12:55 88 133/88 97 General: Conversant, No Apparent Distress HEENT: Atraumatic, Normocephaly, Trachea midline Neck: No JVD, Normal carotid pulses Cardiac: Reg Rate and Rhythm, Normal S1 and S2, No Murmur Lungs: Normal Breath Sounds, No Wheeze, Rales, Rhonchi Neuro: Alert and responsive, No focal deficits noted, Motor nerves intact, Sensory nerves intact Vascular: Normal capillary refill Abdomen: Soft, Non-tender Skin: No rashes noted on visualized skin Musculoskeletal: No Chest Wall Tenderness Extremities: No Clubbing, No Cyanosis, No Edema, Normal Pulses Results 11/22/18 01:06 11/22/18 01:06 Lab Results, Last 24 hours 11/21/18 11/22/18 11/22/18 17:53 01:06 01:06 WBC 6.1 Hgb 14.1 Hct 43.4 Plt Count 112 L Sodium Potassium Chloride Carbon Dioxide BUN Creatinine Glucose Calcium Magnesium Troponin I < 0.03 < 0.03 11/22/18 01:06 WBC Hgb Hct Plt Count Sodium 140 Potassium 4.2 Chloride 110 H Carbon Dioxide 22 L BUN 15 Creatinine 0.88 Glucose 84 Calcium 9.2 Magnesium 1.9 Troponin I < 0.03 - Imaging Chest Xray: image reviewed (Normal cardiac size. No active pulmonary disease.) Consult Discharge Plan - Plan [facility]errals: [facility] [Primary Care Provider] -
[2018-11-23] MEDS: Nitroglycerin 25 MG/250 ML INFUS..BTL IVC SCH ×2 (01:55→08:52)
[2018-11-23 04:22] LABS: Basophils % 0.3 %; Eosinophils # 0.1 K/mcL (0.0-0.6); Eosinophils % 1.9 %; Hematocrit 41.1 % (37.5-50.1); Hemoglobin 13.4 g/dL (12.9-16.9); Immature Granulocytes % 0.2 % (0-4); Lymphocytes # 2.3 K/mcL (0.6-4.6); Lymphocytes % 37.4 %; Mean Corpuscular HGB Conc 32.6 g/dL (31.6-35.5); Mean Corpuscular Hemoglobin 30.5 pg (28.0-33.3); Mean Corpuscular Volume 93.6 fL (83.0-100.0); Mean Platelet Volume 10.9 fL (9.4-12.4); Monocytes # 0.7 K/mcL (0.0-1.3); Monocytes % 11.8 %; Platelet Count 113 K/mcL (140-400); Red Blood Count 4.39 M/mcL (4.19-5.50); Red Cell Distribution Width 13.3 % (11.5-14.5); Segmented Neutrophils % 48.4 %; White Blood Count 6.3 K/mcL (4.3-11.1)
[2018-11-23 04:45] LABS: BUN/Creatinine Ratio 17 (6-26); Blood Urea Nitrogen 16 mg/dL (8-23); Calcium 8.6 mg/dL (8.6-10.3); Carbon Dioxide 23 mEq/L (23-29); Chloride 109 mEq/L (98-107); Glucose 97 mg/dL (70-105); Osmolality,Calculated 287 (280-300); Potassium 4.5 mEq/L (3.5-5.1); Sodium 138 mEq/L (136-145); eGFR For African Americans > 60 (> 60); eGFR For Non-African Americans > 60 (> 60)
[2018-11-23] MEDS: *HR* Heparin 5,000 UNIT/ML VIAL SQ SCH ×3 (06:50→20:34)
[2018-11-23] MEDS: Aspirin Enteric Coated 81 MG Tablet PO SCH (08:51)
[2018-11-23] MEDS: Isosorbide MONOnitrate (24 HR) 30 MG TAB.ER.24H PO SCH ×2 (08:51→20:35)
[2018-11-23] MEDS: Colchicine 0.6 MG TABLET PO SCH (08:51)
[2018-11-23] MEDS ORDERED: 0.9 % Sodium Chloride 1,000 ML ONE ×2 (08:56→10:59)
--- NOTE | 2018-11-23 09:28 | Event Note ---
Date of Encounter: 11/23/18 Time of Encounter: 09:20 - Cardiology Event Note Laboratory Tests 11/21/18 11/21/18 11/21/18 08:32 08:32 08:32 Hgb Hct INR 1.0 Creatinine Est GFR (Non-Af Amer) Troponin I < 0.03 B-Natriuretic Peptide 253 H LDL Cholesterol, Calc 11/21/18 11/21/18 11/22/18 12:24 17:53 01:06 Hgb Hct INR Creatinine Est GFR (Non-Af Amer) Troponin I < 0.03 < 0.03 < 0.03 B-Natriuretic Peptide LDL Cholesterol, Calc 11/22/18 11/23/18 11/23/18 01:06 03:51 03:51 Hgb 13.4 Hct 41.1 INR Creatinine 0.95 Est GFR (Non-Af Amer) > 60 Troponin I < 0.03 B-Natriuretic Peptide LDL Cholesterol, Calc [address] note reviewed. Right radial site dry and intact, no bleeding, right radial pulse 2+ palpable. Currently on NTG gtt. Reports chest pain has improved from 4/10 to 2/10. Had discussion with patient and son and he is agreeable to PCI attempt today. Patient is willing to temporarily rescind DNR status for 24 hours for procedure. Discussed and reviewed with Dr. Hinkle. HAS-BLED Score - Score Elderly: Age>65 years Medication usage predisposing to bleeding: Antiplatelet agents, NSAIDs, Anticoagulants Score: 2
--- NOTE | 2018-11-23 10:24 | Internal Med Progress Note ---
Hospitalist Progress Note - Encounter Date of Encounter: 11/23/18 Time of Encounter: 10:22 - Subjective Interval History: Albert Thornton is an 83 M w hx CAD s/p PCIx2 (last 12/2016 MOON to mLAD), HTN, HLD, colon cancer s/p resection '14, who p/w chest pain. Pain is described as pressure-like, substernal, which occurred while he was walking from the bathroom back to his bedroom. He occasionally gets anginal chest pain like this, for which he says he takes about 1 nitro tab a month with good relief. However, today he took 3 nitro tabs without relief so he called EMS. Pain is nonradiating, and there is no N/V, diaphoresis, or SOB. No fevers or leg swelli ng. He currently takes DAPT and reports compliance. First stent in 2006 at [facility], then second stent in 2017 at [facility] in [place]. Patient continued to have substernal chest pain overnight, nitroglycerin drip was started with partial relief of symptoms. [facility] was perfo rmed on 11/22 which revealed triple vessel disease, CT surgery was consulted. will repeat PCI with stents to LCx and OM. Patient seen and examined in the room. Reported chest pain 3 out of 10. No pal pitation, syncope, or lightheadedness. - Exam Vitals: Temp Pulse Resp BP Pulse Ox 97.9 F 95 17 110/74 95 11/23/18 07:24 11/23/18 07:24 11/23/18 07:24 11/23/18 07:24 11/23/18 07:24 Exam: General: NAD, good eye contact, well appearing, elderly Head: Atraumatic, normocephalic. Face symmetric Eyes: EOMI, sclerae anicteric ENT: Mucous membranes moist. Normal oral mucosa and dentition. Trachea midline. Thoracic: No visible chest wall deformities. Normal breath sounds b/l, no wheezing or crackles Cardio: Normal S1 and S2, regular rate and rhythm, no murmurs Abdomen: Soft, nontender, nondistended Extremities: Warm, well perfused. DP pulses 2+ b/l. No clubbing, cyanosis. No edema Skin: Intact. No rashes, bruises, or ulcers Neuro: Awake, fully oriented. Good memory, concentration, attention. Speech fluent. CN II-XII grossly intact. Strength 5/5 in b/l UE and LE - Assessment and Plan (1) Chest pain Current Visit: Yes Status: Acute Assessment and Plan: 83-year-old gentleman with severe CAD presented with unstable angina. LHC today showed severe triple-vessel disease. Repeat LHC with stent placement recommended by CT surgery. Continue current treatment with aspirin and Plavix. Continue beta brionna and imdur. Continue nitroglycerin drip. (2) CAD (coronary artery disease) Current Visit: No Status: Chronic Assessment and Plan: LHC showed severe triple-vessel disease, CT surgery recommended repeat LHC with stents placement to LCx and OM. (3) HTN (hypertension) Current Visit: No Status: Chronic Assessment and Plan: BP controlled, continue current medications including Imdur and atenolol. (4) Gout Current Visit: No Status: Chronic Assessment and Plan: Continue colchicine. DVT Prophylaxis: Heparin subcutaneous. - Time Spent with Patient Total time spent is greater than 50% in coordination of care (as documented) at patient's floor/unit and/or counseling patient: Greater than 35 minutes Internal Medicine: Result - Labs CBC & Chem 7: 11/23/18 03:51 11/23/18 03:51 Labs: Short CBC 11/23/18 Range/Units 03:51 WBC 6.3 (4.3-11.1) K/mcL Hgb 13.4 (12.9-16.9) g/dL Hct 41.1 (37.5-50.1) % Plt Count 113 L (140-400) K/mcL Neutrophils # 3.0 (1.6-8.9) K/mcL BMP 11/23/18 03:51 Sodium 138 Potassium 4.5 Chloride 109 H Carbon Dioxide 23 BUN 16 Creatinine 0.95 Glucose 97 Calcium 8.6 - ABG Interpretation ABG results: PT/INR, D-dimer PT 11.2 Seconds (9.4-12.1) 11/21/18 08:32 Consult Discharge Plan - Plan [facility]errals: [facility] [Primary Care Provider[facility] - (1) Chest pain Qualifiers: Chest pain type: other chest pain Qualified Code(s): R07.89 - Other chest pain; R07.8 - Other chest pain (2) CAD (coronary artery disease) Qualifiers: Coronary Disease-Associated Artery/Lesion type: [place] artery [place] vs. weinberg splanted heart: [place] heart Associated angina: with unstable angina Qualified Code(s): I25.110 - Atherosclerotic heart disease of [place] coronary artery with unstable angina pectoris (3) HTN (hypertension) Qualifiers: Hypertension type: unspecified Qualified Code(s): I10 - Essential (primary) hypertension (4) Gout Qualifiers: Gout site: unspecified site Gout etiology: unspecified cause Chronicity: chronic Presence of tophus: without tophus Qualified Code(s): M1A.9XX0 - Chronic gout, unspecified, without tophus (tophi)
--- NOTE | 2018-11-23 10:57 | Pre-Sedation Evaluation ---
Pre-sedation evaluation - Pre-sedation checklist Date of procedure: 11/23/18 Procedure: Heart Cath Recent Vitals: Last Vital Signs Temp 97.9 F 11/23/18 07:24 Pulse 95 11/23/18 07:24 Resp 17 11/23/18 07:24 BP 110/74 11/23/18 07:24 Pulse Ox 95 11/23/18 07:24 H&P (including ROS) documented in medical record: Yes Previous reaction to sedatives/anesthetics: No Dietary Status: NPO after Midnight Airway Assessment: Patient can open mouth completely, TMJ function normal Dentition: poor dentition Possible difficult airway: No ASA Classification *see protocol: CLASS II-Mild systemic disease Plan of Care: Pt appropriate candidate for procedure/moderate/conscious sedation Cardiac Registry (Cardio Only) - Clincal Frailty Scale Clinical Frailty Scale: Well
[2018-11-23] MEDS ORDERED: Verapamil 5 MG/2 ML VIAL ONE (10:59)
[2018-11-23] MEDS ORDERED: Iopamidol 125 ML INFUS..BTL ONE ×2 (11:00→11:51)
[2018-11-23] MEDS ORDERED: Heparin 1,000 UNITS/500 mL 500 ML ONE (11:00)
[2018-11-23] MEDS ORDERED: *HR* Heparin 10,000 UNIT/10 ML VIAL ONE (11:00)
[2018-11-23] MEDS ORDERED: Nitroglycerin 1,000 MCG/10 ML VIAL IV ONE (11:00)
[2018-11-23] MEDS ORDERED: *HR* Midazolam HCl 2 MG/2 ML VIAL ONE (11:17)
--- NOTE | 2018-11-23 11:25 | Electrocardiograph Report ---
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
[2018-11-23] MEDS ORDERED: *HR* FentaNYL (PF) 100 MCG/2 ML VIAL ONE (11:34)
--- NOTE | 2018-11-23 12:23 | Invasive Diagnostic Lab Proc ---
Name: Albert Thornton Date of Study: 11/23/2018 Date: 1935 Ht: 70.1in Medical Record#: [id number] Age: 83 Wt: 170.42lb Gender: Male BSA: 1.95 Order #: [id number] BMI: 24.4 Physicians Procedure Physician: El Hinkle MD Referring MD: Referring MD: Staff Name Position Time In [facility] RT (R) Monitor 11:16 AM Sparkle Garay RT (R) Scrub 11:16 AM Pina Nguyen RT (R) orientee with scrubb 11:17 AM Lidia Leos RN Supervisor Tank Cleaning 11:17 AM Sparkle Moon RT (R) Nurse 11:25 AM Indications Indication Stable Known CAD Procedures Performed Procedure PRQ CARD MOON STENT W/ANGIO 1 VSL PRQ CARD STENT W/ANGIO ADDL Pre-Procedure Checklist Informed consent is complete signed and on chart. H&P is on chart. ID band is on and ID verified with patient. Patient NPO for procedure The procedure was described for the patient and questions were answered. Blood Pressure: 110/74 ECG is on chart. Rhythm: NSR Plan of Care Patient will tolerate the procedure without complications. Adequate level of comfort will be maintained. Hemodynamics will remain stable Patient will recover from procedure without complications. Respiratory function will be maintained. Cardiac rhythm will remain stable. Patient temperature will be maintained. Patient and/or family have verbalized understanding of the procedure. Patient Education Intravenous Access Time IV Size Location DC'd Fluid/Drip Rate Units RN 11:13 AM 20g 1 /" Patent On Arrival Rt Antecubital 0.9NaCl 50 ml/hr Lidia Leos RN Allergies No Known Allergies Vital Signs Time BP (mmHg) HR (bpm) O2 Sat. RR (bpm) LOC 11:13 AM 110 / 74 95 95 % 17 5 = Fully awake and oriented or at pre-proc level 11:41 AM 158 / 79 62 95 % 20 11:46 AM 159 / 75 61 97 % 11 11:51 AM 172 / 79 58 98 % 18 11:56 AM 152 / 78 64 98 % 17 12:01 PM 166 / 76 66 96 % 18 11:27 AM 170 / 83 66 97 % 17 11:31 AM 167 / 87 58 99 % 19 11:37 AM 163 / 81 60 100 % 20 Procedural Medications Time Medication Dose Units Method Given By 11:28 AM Oxygen 2 L/min nasal cannula Lidia Leos RN 11:28 AM Versed 2 mg Intravenous Lidia Leos RN 11:31 AM Lidocaine 2% 15 ml Subcutaneous El Hinkle MD 11:34 AM Fentanyl 25 mcg Intravenous Lidia Leos RN 11:38 AM Nitroglycerin 200 mcg Intraarterial El Hinkle MD 11:38 AM Heparin 5000 units Intravenous Lidia Leos RN 12:01 PM Plavix 150 mg Orally Lidia Leos RN ASA Classification: CLASS II- Mild systemic disease (i.e. well-controlled diabetes, hypertension, asthma, cigarette smoking) Ml Score Preprocedure Postprocedure Activity 2- Moves 4 extremities sustained head lift Activity 2- Moves 4 extremities sustained head lift Circulation 2- SBP +/= 20 points of pre-anesthetic level Circulation 2- SBP +/= 20 points of pre-anesthetic level Consciousness 2- Awake and alert oriented x 3 Consciousness 2- Awake and alert oriented x 3 O2 Saturation 2- Able to maintain O2 satruation of 92% on room air O2 Saturation 2- Able to maintain O2 satruation of 92% on room air Respiratory 2- Able to deep breathe and cough well Respiratory 2- Able to deep breathe and cough well Total Score 10 Total Score 10 Contrast Agent: Isovue Diagnostic Contrast: 100 ml Total Contrast: 100 ml Fluoro Dose: 25 mGy Procedure Log Time Note Enter By 11:05 AM CathStat 11:16 AM Pt arrived to labor standards director 2 at 11:16 [facility] 11:16 AM Physician arrived 11:16 [facility] 11:16 AM ASA Class CLASS II- Mild systemic disease (i.e. well-controlled diabetes, hypertension, asthma, cigarette smoking) [facility] 11:16 AM Dominga completed [facility] 11:16 AM Sign in performed according to hospital policy. Informed consent was obtained. [facility] 11:16 AM Sparkle Garay RT (R) Position: Scrub Time in: 11:16 [facility] 11:17 AM Pina Nguyen RT (R) Position: orientee with scrubb Time in: 11:17 [facility] 11:17 AM Liida Leos RN Position: Supervisor Tank Cleaning Time in: 11:17 [facility] 11:24 AM Procedure start 11: [facility] 11:25 AM Sparkle Moon (R) Position: Nurse Time in: : [facility] 11: AM Vitals capture started with the following parameters, Patient=Adult, Interval=5 min, Initial Lmlidrbu=681 mmHg, Deflation Rate=3 mmHg, Cuff placed on Right Arm 11:26 AM Recorded ECG: HR=99 Condition=Condition 1 11:27 AM HR=66 bpm, IFOL=402/83 mmhg, SpO2=97 %, Resp=17 B/min 11: AM defib pads applied to patient tsites 11: AM Hair removed from procedure site in holding area using clippers. Bilateral groin prepped with Chloraprep by Sparkle Garay (R), then patient was draped. Skin intact. tsites 11: AM Time: 11:28 Oxygen on at 2 L/min per nasal cannula by Lidia Leos RN [facility] 11: AM Time: : Versed 2 mg Intravenous Given by Lidia Leos RN [facility] 11:30 AM Time out was performed according to hospital policy. Conscious sedation and anesthesia was achieved (see medication log with in this report above) tsites 11:31 AM HR=58 bpm, PAHI=980/87 mmhg, SpO2=99.0 %, Resp=19 B/min 11:33 AM Pressure channel 2 zeroed. 11:34 AM Time: 11:31 15 ml Lidocaine 2% to right groin Subcutaneous Given by El Hinkle MD tsites 11:34 AM Access obtained by percutaneous puncture. 6Fr 10cm Terumo Meno sheath placed in right Femoral artery. [id number] tsites 11:34 AM PCI Status Urgent tsites 11:34 AM Time: 11:34 Fentanyl 25 mcg Intravenous Given by Lidia Leos RN tsites 11:35 AM 6Fr JL4 Runway guide catheter was used to cannulate the PCI vessel successfully. reused? No tsites 11:35 AM Inflation device was opened. tsites 11:35 AM LCA angiography performed in multiple views. tsites 11:37 AM HR=60 bpm, SOCS=411/81 mmhg, NeW9=999.0 %, Resp=20 B/min 11:37 AM Recorded Pressure: Ao, HR=59, Condition=Condition 1 (Aorta) Ao 134/71/95 11:38 AM Time: 11:38 Nitroglycerin 200 mcg Intraarterial Given by El Hinkle MD tsites 11:39 AM Time: 11:38 Heparin 5000 units Intravenous Given by Lidia Leos RN tsites 11:39 AM .014 Balance 300cm guide wire across target lesion- successful. reused? No tsites 11:41 AM HR=62 bpm, ULRJ=290/79 mmhg, SpO2=95.0 %, Resp=20 B/min 11:42 AM Lesion found in 1st Marginal. Pre Stenosis: 80 Pre JUDD Flow: 3: Complete and Brisk Flow/Perfusion tsites 11:42 AM Circumflex, Obtuse Marginal, Left Posterior Descending, and Left Posterolateral Coronary Arteries with 80 % stenosis. If graft is supplying this area, 0 % stenosis tsites 11:43 AM 2.5mm x 8mm Synergy drug-eluting stent across target lesion- successful Lot #[id number] tsites 11:44 AM Stent deployed @ 13 dhaval for 30 seconds tsites 11:45 AM Stent delivery system removed intact. tsites 11:46 AM HR=61 bpm, JQGC=157/75 mmhg, SpO2=97.0 %, Resp=11 B/min 11:47 AM Lesion found in Distal Circumflex. Pre Stenosis: 75 Pre JUDD Flow: 3: Complete and Brisk Flow/Perfusion tsites 11:48 AM 2.5mm x 8mm Synergy drug-eluting stent across target lesion- successful Lot #[id number] tsites 11:49 AM Coronary Dominance: right tsites 11:50 AM Stent deployed @ 13 dhaval for 30 seconds tsites 11:50 AM Recorded Pressure: Ao, HR=60, Condition=Condition 1 (Aorta) Ao 148/62/95 11:51 AM Guide wire removed intact. tsites 11:51 AM Stent delivery system removed intact. tsites 11:51 AM ACT drawn tsites 11:51 AM HR=58 bpm, SZBA=441/79 mmhg, SpO2=98 %, Resp=18 B/min 11:51 AM Guide catheter removed intact. tsites 11:51 AM 6Fr JR 4 Runway guide catheter was used to cannulate the PCI vessel successfully. reused? No tsites 11:51 AM RCA angiography performed in multiple views. tsites 11:55 AM Lesion found in Mid RCA. Pre Stenosis: 55 Pre JUDD Flow: 3: Complete and Brisk Flow/Perfusion tsites 11:55 AM Right Coronary, Right Posterior Descending Arteries with Right Posterolateral and Acute Marginal branches with 55 % stenosis. If graft is supplying this area, 0 % stenosis tsites 11:56 AM HR=64 bpm, OILB=220/78 mmhg, SpO2=98.0 %, Resp=17 B/min 11:57 AM Bolus angiogram of right Femoral complete: hand injection tsites 11:58 AM Procedure completed at 11:58 11/23/2018 tsites 11:58 AM Did you address JUDD flow and Dominance? YesCoronary Dominance: right tsites 11:59 AM Sign out completed: Radiation Dose 318 mGy, 25 Gy/cm2 Fluoro Time: 5.8 Isovue 370 - 200ml contrast 100 ml given by El Hinkle MD. Complications: None. 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 Sedation minutes 31. Cardiac Rehab Consult needed: Yes. Confirmed administered medications: Yes tsites 12:00 PM Isovue 370 - 200ml,1 Bottle(s) used. tsites 12:00 PM Arterial sheath pulled, Perclose closure device used and was Successful [id number] S/N. tsites 12:00 PM Estimated Blood Loss: less than 20cc tsites 12:00 PM Post ECG NSR tsites 12:00 PM Post Blood Pressure 152/78 tsites 12:00 PM 12:00 Post Pulses Bilateral DP & PT 1+ tsites 12:01 PM Information taught Cardiac Cath, PCI, and Perclose tsites 12:01 PM Education needs Procedure, Plan of Care, and Responsibilities of Patient in Care tsites 12:01 PM Learning barriers :None tsites 12:01 PM Education Methods Verbal tsites 12:01 PM Education evaluation Able to repeat information tsites 12:01 PM Site status No bleeding/ No Hematoma - Rt Groin as reported by Pina Nguyen RT (R) at 12:01 tsites 12:01 PM Opsite applied tsites 12:01 PM Plavix, Effient or Brilinta given Yes tsites 12:01 PM HR=66 bpm, WRJV=746/76 mmhg, SpO2=96 %, Resp=18 B/min 12:01 PM Time: 12:01 Plavix 150 mg Orally Given by Lidia Leos RN tsites 12:02 PM Delay to floor No tsites 12:03 PM Family placed in consult room. tsites 12:06 PM Report given to toshia GARCIA Pt taken to 3B Room #63. 12:05 tsites 12:09 PM Patient out of room: 12:09 tsites Complications Complication None Hemodynamics Pressures Site Systolic/A Wave Diastolic/V Wave Mean AO 134 71 95 AO 148 62 95 Post Procedure Information Blood Pressure: 152/78 mmHg Rhythm: NSR Post procedural instructions were given Closure Device Time Device Success/Fail 11/23/2018 12:10:00 PM Perclose ProGlide Successful Site Checks Time Location Status Staff Sheath In? Note 12:01 PM Rt Groin No bleeding/ No Hematoma Pina Nguyen RT (R) Pulses Time Site Pre-Procedure Post-Procedure Note 11/23/2018 11:14:00 AM Bilateral radial 2+ 11/23/2018 11:14:00 AM Bilateral DP 2+ 12:00:00 PM Bilateral DP & PT 1+ Updated by Gali Hooper RT (R) on 11/23/2018 12:16:31 PM Sparkle Moon RT electronically signed on 11/23/2018 12:17:21 PM with status of Final
[2018-11-23] MEDS ORDERED: Nitroglycerin 0.4 MG TAB.SUBL SL PRN (12:30)
[2018-11-23] MEDS: Acetaminophen 325 MG TABLET PO PRN (20:40)
[2018-11-24 04:52] LABS: Basophils % 0.3 %; Immature Granulocytes % 0.2 % (0-4); Mean Corpuscular HGB Conc 32.8 g/dL (31.6-35.5); Mean Corpuscular Hemoglobin 30.3 pg (28.0-33.3)
[2018-11-24 04:54] LABS: Eosinophils # 0.1 K/mcL (0.0-0.6); Eosinophils % 1.9 %; Hematocrit 41.1 % (37.5-50.1); Hemoglobin 13.5 g/dL (12.9-16.9); Immature Platelets 4.8 % (1.1-6.1); Lymphocytes # 1.8 K/mcL (0.6-4.6); Mean Corpuscular Volume 92.4 fL (83.0-100.0); Mean Platelet Volume 10.9 fL (9.4-12.4); Monocytes # 0.8 K/mcL (0.0-1.3); Monocytes % 14.1 %; Neutrophils # 3.1 K/mcL (1.6-8.9); Red Blood Count 4.45 M/mcL (4.19-5.50); Red Cell Distribution Width 13.4 % (11.5-14.5); Segmented Neutrophils % 52.5 %; White Blood Count 5.8 K/mcL (4.3-11.1)
[2018-11-24 05:05] LABS: Platelet Count 97 K/mcL (140-400)
[2018-11-24 05:15] LABS: BUN/Creatinine Ratio 14 (6-26); Blood Urea Nitrogen 14 mg/dL (8-23); Calcium 8.6 mg/dL (8.6-10.3); Carbon Dioxide 25 mEq/L (23-29); Chloride 109 mEq/L (98-107); Glucose 101 mg/dL (70-105); Osmolality,Calculated 293 (280-300); Potassium 4.4 mEq/L (3.5-5.1); Sodium 141 mEq/L (136-145); eGFR For African Americans > 60 (> 60); eGFR For Non-African Americans > 60 (> 60)
[2018-11-24] MEDS: *HR* Heparin 5,000 UNIT/ML VIAL SQ SCH ×3 (06:09→22:23)
[2018-11-24] MEDS: Isosorbide MONOnitrate (24 HR) 30 MG TAB.ER.24H PO SCH ×2 (08:35→22:21)
[2018-11-24] MEDS: Aspirin Enteric Coated 81 MG Tablet PO SCH (08:36)
[2018-11-24] MEDS: Colchicine 0.6 MG TABLET PO SCH (08:36)
--- NOTE | 2018-11-24 08:37 | Cardiology Progress Note ---
Date of Encounter: 11/24/18 Time of Encounter: 08:35 Assessment and Plan (1) CAD (coronary artery disease) Current Visit: No Status: Chronic Per Cardiology: S/p PCI: Impressions: Patient had successful Drug-Eluting Stent placement in the distal Circ and OM. * Circumflex There is a 8 mm long, 75% stenosis in the Distal Circumflex. The lesion has a JUDD flow of 3 and has no thrombus present. An intervention was performed on the Distal Circumflex with a final stenosis of 0%. There were no lesion complications. The final JUDD flow was 3. There is a 8 mm long, 80% stenosis in the 1st Marginal. The lesion has a JUDD flow of 3 and has no thrombus present. An intervention was performed on the 1st Marginal with a final stenosis of 0%. There were no lesion complications. The final JUDD flow was 3. * Right Coronary Artery There is a 55% stenosis in the Mid RCA. The lesion has a JUDD flow of 3. Currently chest pain-free. On aspirin, Plavix, statin, beta brionna, long- acting nitrate. Adding ACEI. Post procedure education provided. All questions answered. Cardiology signing off, follow-up arranged, reconsult as needed. Anticipate discharge home today. Qualifiers: Coronary Disease-Associated Artery/Lesion type: [place] artery [place] vs. transplanted heart: [place] heart Associated angina: with unstable angina Qualified Code(s): I25.110 - Atherosclerotic heart disease of [place] coronary artery with unstable angina pectoris (2) HTN (hypertension) Current Visit: No Status: Chronic Per Cardiology: Systolic blood pressure remains elevated. Heart rates in the 50s. We will add low-dose NETTE inhibitor. Titrate as needed. Qualifiers: Hypertension type: unspecified Qualified Code(s): I10 - Essential (primary) hypertension Discussion w patient/family: The assessment and plan as outlined above was discussed with the patient and/or family members who expressed understanding and agreement. All questions were answered. Thank you for involving us in the care of your patient. Please call with any questions. Subjective Principal diagnosis: CAD Interval history: Denies any concerns today. Denies any chest pain. Reports had some difficulty with right groin site bleeding yesterday. Objective Vital Signs, Last 4 Hours Temp Pulse Resp BP Pulse Ox 11/24/18 07:48 97.7 F 68 16 168/77 96 General: Conversant, No Apparent Distress HEENT: Atraumatic, Normocephaly, Mucus Membranes Moist Neck: No JVD, Normal carotid pulses Cardiac: Reg Rate and Rhythm, Normal S1 and S2, No Murmur Lungs: Normal Breath Sounds, No Wheeze, Rales, Rhonchi Neuro: Alert and responsive, No focal deficits noted Abdomen: Soft, Non-Tender Skin: No rashes noted on visualized skin, Other (Right groin site trying intact, mild to moderate ecchymosis, no active bleeding, no hematoma, right PT and DP pulses 1+ palpable) Musculoskeletal: No Chest Wall Tenderness Extremities: No Clubbing, No Cyanosis, No Edema, Normal Pulses Results 11/24/18 04:21 11/24/18 04:21 Lab Results Laboratory Tests 11/24/18 11/24/18 04:21 04:21 Hgb 13.5 Hct 41.1 Creatinine 0.97 Est GFR (Non-Af Amer) > 60 Active Medications Acetaminophen (Tylenol) 650 mg PO Q6HR PRN PRN Reason: Mild Pain/Fever Stop: 05/23/19 10:25 Last Admin: 11/23/18 20:40 Dose: 650 mg Documented by: Aspirin (Aspirin Ec) 81 mg PO DAILY [facility] Stop: 05/24/19 09:22 Last Admin: 11/24/18 08:36 Dose: 81 mg Documented by: Atenolol (Tenormin) 50 mg PO 1200 [facility] Stop: 05/24/19 12:01 Last Admin: 11/23/18 11:44 Dose: Not Given Documented by: Clopidogrel Bisulfate (Plavix) 75 mg PO DAILY [facility] Stop: 05/24/19 09:01 Last Admin: 11/24/18 08:38 Dose: Not Given Documented by: Colchicine (Colcrys) 0.6 mg PO DAILY [facility] Stop: 05/24/19 09:01 Last Admin: 11/24/18 08:36 Dose: 0.6 mg Documented by: Heparin Sodium (Porcine) (Heparin) 5,000 unit SQ Q8HCO [facility]; Protocol Stop: 05/24/19 14:01 Last Admin: 11/24/18 06:09 Dose: Not Given Documented by: Isosorbide Mononitrate (Imdur) 30 mg PO BID [facility] Stop: 05/23/19 21:01 Last Admin: 11/24/18 08:35 Dose: 30 mg Documented by: Lisinopril (Zestril) 2.5 mg PO DAILY [facility]; Protocol Stop: 05/26/19 09:01 Metoprolol Tartrate (Lopressor) 25 mg PO BID [facility] Stop: 05/25/19 21:01 Naloxone HCl (Narcan) 0.4 mg IVP Q2MPRN PRN PRN Reason: SEE COMMENTS Stop: 05/23/19 10:25 Nitroglycerin (Nitroglycerin) 0.4 mg SL Q5MPRN PRN PRN Reason: CHEST PAIN Stop: 05/23/19 10:27 Ondansetron HCl (Zofran) 4 mg IVP Q8HR PRN PRN Reason: Nausea And Vomiting Stop: 05/23/19 10:25 - Imaging and Cardiology Cardiac cath: report reviewed Consult Discharge Plan - Plan [facility]errals: [facility] [Primary Care Provider] - 12/01/18 2:00 pm
[2018-11-24] MEDS ORDERED: Aspirin 81 MG TAB.CHEW PO SCH (09:00)
--- NOTE | 2018-11-24 13:23 | Internal Med Progress Note ---
Hospitalist Progress Note - Encounter Date of Encounter: 11/24/18 Time of Encounter: 13:20 - Subjective Interval History: Albert Thornton is an 83 M w hx CAD s/p PCIx2 (last 12/2016 MOON to mLAD), HTN, HLD, colon cancer s/p resection '14, who p/w chest pain. Pain is described as pressure-like, substernal, which occurred while he was walking from the bathroom back to his bedroom. He occasionally gets anginal chest pain like this, for which he says he takes about 1 nitro tab a month with good relief. However, today he took 3 nitro tabs without relief so he called EMS. Pain is nonradiating, and there is no N/V, diaphoresis, or SOB. No fevers or leg swelli ng. He currently takes DAPT and reports compliance. First stent in 2006 at [facility], then second stent in 2016 at [facility] in [place]. Patient continued to have substernal chest pain overnight, nitroglycerin drip was started with partial relief of symptoms. LHC was perfo rmed on 11/22 which revealed triple vessel disease, CT surgery was consulted. Not a good candidate of CABG. Repeat PCI with stents to LCx and OM on 11/23. Patient seen and examined in the room. Reported one episode of bleeding from arterial puncture site overnight, but currently no bleeding. Reported absence of chest pain. No palpitation, syncope, or lightheadedness. - Exam Vitals: Temp Pulse Resp BP Pulse Ox 98.3 F 83 18 120/76 93 11/24/18 11:05 11/24/18 11:05 11/24/18 11:05 11/24/18 11:05 11/24/18 11:05 Exam: General: NAD, good eye contact, well appearing, elderly Head: Atraumatic, normocephalic. Face symmetric Eyes: EOMI, sclerae anicteric ENT: Mucous membranes moist. Normal oral mucosa and dentition. Trachea midline. Thoracic: No visible chest wall deformities. Normal breath sounds b/l, no wheezing or crackles Cardio: Normal S1 and S2, regular rate and rhythm, no murmurs Abdomen: Soft, nontender, nondistended Extremities: Warm, well perfused. DP pulses 2+ b/l. No clubbing, cyanosis. No edema Skin: Intact. No rashes, bruises, or ulcers Neuro: Awake, fully oriented. Good memory, concentration, attention. Speech fluent. CN II-XII grossly intact. Strength 5/5 in b/l UE and LE - Assessment and Plan (1) Chest pain Current Visit: Yes Status: Acute Assessment and Plan: 83-year-old gentleman with severe CAD presented with unstable angina. LHC today showed severe triple-vessel disease. Repeat LHC with stent placement to distal LCx and OM on 11/23. Chest pain resolved after the procedure. Continue current treatment with aspirin and Plavix. Continue beta brionna and imdur. Reported bleeding from right groin artery puncture site, currently bleeding stopped. Will keep pt overnight because of high risk of bleeding, if no bleeding, will dc in am. (2) CAD (coronary artery disease) Current Visit: No Status: Chronic Assessment and Plan: LHC showed severe triple-vessel disease, repeat LHC with stents placement to LCx and OM on 11/23. Chest pain resolved after the procedure. (3) HTN (hypertension) Current Visit: No Status: Chronic Assessment and Plan: BP controlled, continue current medications including Imdur and atenolol. (4) Gout Current Visit: No Status: Chronic Assessment and Plan: Continue colchicine. - Time Spent with Patient Total time spent is greater than 50% in coordination of care (as documented) at patient's floor/unit and/or counseling patient: Greater than 35 minutes Plan of Care Discussed with: patient Internal Medicine: Result - Labs CBC & Chem 7: 11/24/18 04:21 11/24/18 04:21 Labs: Short CBC 11/24/18 Range/Units 04:21 WBC 5.8 (4.3-11.1) K/mcL Hgb 13.5 (12.9-16.9) g/dL Hct 41.1 (37.5-50.1) % Plt Count 97 L (140-400) K/mcL Neutrophils # 3.1 (1.6-8.9) K/mcL BMP 11/24/18 04:21 Sodium 141 Potassium 4.4 Chloride 109 H Carbon Dioxide 25 BUN 14 Creatinine 0.97 Glucose 101 Calcium 8.6 - ABG Interpretation ABG results: PT/INR, D-dimer PT 11.2 Seconds (9.4-12.1) 11/21/18 08:32 Consult Discharge Plan - Plan Referrals: REJIPCP [Primary Care Provider] - 12/01/18 2:00 pm (1) Chest pain Qualifiers: Chest pain type: other chest pain Qualified Code(s): R07.89 - Other chest pain; R07.8 - Other chest pain (2) CAD (coronary artery disease) Qualifiers: Coronary Disease-Associated Artery/Lesion type: [place] artery [place] vs. transplanted heart: tribe heart Associated angina: with unstable angina Qualified Code(s): I25.110 - Atherosclerotic heart disease of tribe coronary artery with unstable angina pectoris (3) HTN (hypertension) Qualifiers: Hypertension type: unspecified Qualified Code(s): I10 - Essential (primary) hypertension (4) Gout Qualifiers: Gout site: unspecified site Gout etiology: unspecified cause Chronicity: chronic Presence of tophus: without tophus Qualified Code(s): M1A.9XX0 - Chronic gout, unspecified, without tophus (tophi)
[2018-11-25 05:19] LABS: Red Cell Distribution Width 13.5 % (11.5-14.5)
[2018-11-25 05:21] LABS: Hematocrit 38.5 % (37.5-50.1); Hemoglobin 12.7 g/dL (12.9-16.9); Immature Platelets 5.1 % (1.1-6.1); Mean Corpuscular Hemoglobin 30.8 pg (28.0-33.3); Mean Corpuscular Volume 93.4 fL (83.0-100.0); Mean Platelet Volume 10.4 fL (9.4-12.4); Red Blood Count 4.12 M/mcL (4.19-5.50); White Blood Count 5.8 K/mcL (4.3-11.1)
[2018-11-25 05:39] LABS: BUN/Creatinine Ratio 20 (6-26); Blood Urea Nitrogen 18 mg/dL (8-23); Calcium 8.7 mg/dL (8.6-10.3); Carbon Dioxide 25 mEq/L (23-29); Chloride 109 mEq/L (98-107); Glucose 96 mg/dL (70-105); Osmolality,Calculated 294 (280-300); Potassium 4.3 mEq/L (3.5-5.1); Sodium 141 mEq/L (136-145); eGFR For African Americans > 60 (> 60); eGFR For Non-African Americans > 60 (> 60)
[2018-11-25] MEDS: *HR* Heparin 5,000 UNIT/ML VIAL SQ SCH (05:51)
[2018-11-25 08:05] VITALS: BP 129/70
[2018-11-25] MEDS: Isosorbide MONOnitrate (24 HR) 30 MG TAB.ER.24H PO SCH (08:23)
[2018-11-25] MEDS: Aspirin Enteric Coated 81 MG Tablet PO SCH (08:24)
[2018-11-25] MEDS: Colchicine 0.6 MG TABLET PO SCH (08:24)
--- NOTE | 2018-11-25 08:37 | Discharge Summary ---
- NOTES TO OUTPATIENT PROVIDER Notes to Outpatient Provider: f/u with cardiology within 2-3 weeks. f/u with PCP within 2 weeks. Date of Encounter: 11/25/18 Time of Encounter: 08:33 - Discharge Diagnosis (1) Chest pain Priority: Primary Status: Acute Qualifiers: Chest pain type: other chest pain Qualified Code(s): R07.89 - Other chest pain; R07.8 - Other chest pain (2) CAD (coronary artery disease) Priority: Primary Status: Acute Qualifiers: Coronary Disease-Associated Artery/Lesion type: [place] artery [place] vs. transplanted heart: [place] heart Associated angina: with unstable angina Qualified Code(s): I25.110 - Atherosclerotic heart disease of [place] coronary artery with unstable angina pectoris (3) HTN (hypertension) Priority: Secondary Status: Chronic Qualifiers: Hypertension type: unspecified Qualified Code(s): I10 - Essential (primary) hypertension (4) Gout Priority: Secondary Status: Chronic Qualifiers: Gout site: unspecified site Gout etiology: unspecified cause Chronicity: chronic Presence of tophus: without tophus Qualified Code(s): M1A.9XX0 - Chronic gout, unspecified, without tophus (tophi) Hospital course: Albert Thornton is an 83 M w hx CAD s/p PCIx2 (last 12/2016 MOON to mLAD), HTN, HLD, colon cancer s/p resection '14, who p/w chest pain. Pain is described as pressure-like, substernal, which occurred while he was walking from the bathroom back to his bedroom. He occasionally gets anginal chest pain like this, for which he says he takes about 1 nitro tab a month with good relief. However, today he took 3 nitro tabs without relief so he called EMS. Pain is nonr adiating, and there is no N/V, diaphoresis, or SOB. No fevers or leg swelling. He currently takes DAPT and reports compliance. First stent in 2006 at [facility], then second stent in 2017 at [facility] in [place]. Patient continued to have substernal chest pain overnight, nitroglycerin drip was started with partial relief of symptoms. LHC was performed on 11/22 which revealed triple vessel disease, CT surgery was consulted. Not a good candidate of CABG. Repeat PCI with stents to LCx and OM on 11/23. After the procedure, patient chest pain resolved. His blood pressure was slightly elevated, BP medications were adjusted, atenolol was switched to metoprolol, low dose of lisinopril was added. Aspirin was also started in addition to Plavix. Patient had one episode of bleeding from the arterial puncture site, but bleeding stopped by manual pressure. Patient was kept in the hospital for one more night, no further bleeding was noted., On the discharge today, patient vital signs were stable, labs were unremarkable, patient denies chest pain, he will be discharged home today, he will follow-up with PCP and cardiology as scheduled. Discharge discussed with: patient Time spent discussing smoking cessation with patient: more than 10 minutes - Time Spent with Patient Total time spent providing and/or coordinating discharge services: Time spent: Greater than 30 minutes - Discharge Medications Prescriptions: New Aspirin Enteric Coated [Aspirin EC] 81 mg PO DAILY #30 tablet. Isosorbide MONOnitrate (24 HR) [Imdur] 30 mg PO BID #60 tab.er.24h Metoprolol [Lopressor] 25 mg PO BID #60 tablet Lisinopril [Zestril] 2.5 mg PO DAILY #30 tablet Continued Colchicine [Mitigare] 0.6 mg PO DAILY Clopidogrel [Plavix] 75 mg PO DAILY Nitroglycerin [Nitrostat] 0.4 mg SL PRN PRN PRN Reason: Chest Pain Lanolin Alcohol/Mo/W.pet/[place] [Eucerin Creme] 1 appl TP DAILY PRN PRN Reason: Dry Skin Discontinued Atenolol [Tenormin] 50 mg PO DAILY Isosorbide DInitrate [Isosorbide Dinitrate] 20 mg PO BID Home Medications: Clopidogrel [Plavix] 75 mg PO DAILY 11/21/18 [History] Colchicine [Mitigare] 0.6 mg PO DAILY 11/21/18 [History] Lanolin Alcohol/Mo/W.pet/[place] [Eucerin Creme] 1 appl TP DAILY PRN 11/21/18 [History] Nitroglycerin [Nitrostat] 0.4 mg SL PRN PRN 11/21/18 [History] Aspirin Enteric Coated [Aspirin EC] 81 mg PO DAILY #30 tablet. 11/25/18 [Rx] Isosorbide MONOnitrate (24 HR) [Imdur] 30 mg PO BID #60 tab.er.24h 11/25/18 [Rx] Lisinopril [Zestril] 2.5 mg PO DAILY #30 tablet 11/25/18 [Rx] Metoprolol [Lopressor] 25 mg PO BID #60 tablet 11/25/18 [Rx] Allergies/Adverse Reactions: Allergy/AdvReac Type Severity Reaction Status Date / Time No Known Allergies Allergy Verified 11/21/18 08:41 Date of admission: 11/23/18 10:29 Primary care physician: [facility] Consults: 11/21/18 10:38 Consult to Cardiology [CONS] Routine Comment: Consulting Provider: Cardiology Ranger Reason for Consult: chest pain, hx CAD s/p stenting, new to area and needs linked to cardio care Call Completed: No 11/22/18 12:58 Consult to Cardiothoracic Surgery [CONS] Routine Consulting Provider: Cardiothoracic Surgery Shu Reason for Consult: open heart Call Completed: Yes 11/23/18 12:03 Consult to Cardiac Rehabilitation-Phase1 [CONS] Routine Comment: Reason for Consult: post op PCI Call Completed: Yes Anticipated date of discharge: 11/25/18 - Constitutional Vitals: Temp Pulse Resp BP Pulse Ox 97.9 F 70 17 129/70 97 11/25/18 08:04 11/25/18 08:04 11/25/18 08:04 11/25/18 08:04 11/25/18 08:04 General appearance: Present: A&O X 3 Exam: General: NAD, good eye contact, well appearing, elderly Head: Atraumatic, normocephalic. Face symmetric Eyes: EOMI, sclerae anicteric ENT: Mucous membranes moist. Normal oral mucosa and dentition. Trachea midline. Thoracic: No visible chest wall deformities. Normal breath sounds b/l, no wheezing or crackles Cardio: Normal S1 and S2, regular rate and rhythm, no murmurs Abdomen: Soft, nontender, nondistended Extremities: Warm, well perfused. DP pulses 2+ b/l. No clubbing, cyanosis. No edema Skin: Intact. No rashes, bruises, or ulcers Neuro: Awake, fully oriented. Good memory, concentration, attention. Speech fluent. CN II-XII grossly intact. Strength 5/5 in b/l UE and LE - Patient Status Disposition: Home, Self-Care Condition: Fair Functional capacity at discharge: independent ambulation Overall status at discharge: patient is progressing back to baseline - Discharge Instructions Follow Up With: REJI,PCP [Primary Care Provider] - 12/01/18 2:00 pm - Diet and Activity Activity: increase activity as tolerated Diet: low fat, low cholesterol, low salt diet
--- NOTE | 2018-11-27 10:03 | Electrocardiograph Report ---
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
== END 2018-11-25 09:30 | disposition home or self-care (01) ==
LOC: 3BNU 08:15 → EMEROOARM 08:15 → 3BNU 11:05
PROVIDERS: ADMIT Internal Medicine; ATTEND Internal Medicine

== ENCOUNTER 2019-02-17 09:58 | Inpatient (IN) ==
[2019-02-17] MEDS: Nitroglycerin 25 MG/250 ML INFUS..BTL IVC SCH (10:24)
[2019-02-17 10:35] LABS: Basophils % 0.2 %; Eosinophils # 0.1 K/mcL (0.0-0.6); Eosinophils % 0.7 %; Hematocrit 42.2 % (37.5-50.1); Hemoglobin 14.9 g/dL (12.9-16.9); Immature Granulocytes % 0.9 % (0-4); Lymphocytes # 1.2 K/mcL (0.6-4.6); Lymphocytes % 13.8 %; Mean Corpuscular HGB Conc 35.3 g/dL (31.6-35.5); Mean Corpuscular Hemoglobin 31.4 pg (28.0-33.3); Mean Corpuscular Volume 88.8 fL (83.0-100.0); Mean Platelet Volume 10.4 fL (9.4-12.4); Monocytes # 0.8 K/mcL (0.0-1.3); Monocytes % 9.6 %; Neutrophils # 6.3 K/mcL (1.6-8.9); Platelet Count 105 K/mcL (140-400); Red Blood Count 4.75 M/mcL (4.19-5.50); Segmented Neutrophils % 74.8 %; White Blood Count 8.5 K/mcL (4.3-11.1)
[2019-02-17 10:55] LABS: BUN/Creatinine Ratio 19 (6-26); Blood Urea Nitrogen 24 mg/dL (8-23); Calcium 9.8 mg/dL (8.6-10.3); Carbon Dioxide 19 mEq/L (23-29); Chloride 105 mEq/L (98-107); Glucose 97 mg/dL (70-105); Osmolality,Calculated 288 (280-300); Sodium 137 mEq/L (136-145); eGFR For African Americans > 60 (> 60); eGFR For Non-African Americans 55 (> 60)
[2019-02-17 11:08] LABS: Troponin I 0.05 ng/mL (< 0.04)
[2019-02-17] MEDS ORDERED: *HR* Heparin 5,000 UNIT/ML VIAL IVP ONE (11:11)
[2019-02-17] MEDS ORDERED: *HR* Heparin 5,000 UNIT/ML VIAL IVP PRN ×2 (11:11)
[2019-02-17] MEDS: Heparin 25,000 UNIT/250 ML D5W 25,000 UNIT/250 ML IV.SOLN IVC SCH (12:04)
[2019-02-17 12:34] LABS: INR 1.1; Prothrombin Time 12.6 Seconds (9.4-12.1)
[2019-02-17] MEDS ORDERED: *HR* Promethazine 25 MG/ML VIAL IVP PRN (12:41)
[2019-02-17] MEDS ORDERED: Naloxone 0.4 MG/ML INJ IVP PRN (12:41)
[2019-02-17] MEDS ORDERED: Morphine Sulfate 2 MG/ML SYRINGE IVP ONE (13:05)
[2019-02-17] MEDS ORDERED: Morphine Sulfate 2 MG/ML SYRINGE ONE (13:08)
[2019-02-18 01:23] LABS: Eosinophils % 2.3 %; Hemoglobin 13.6 g/dL (12.9-16.9); Immature Granulocytes % 0.4 % (0-4); Lymphocytes % 24.1 %; Segmented Neutrophils % 62.7 %
[2019-02-18 01:25] LABS: Basophils % 0.2 %; Eosinophils # 0.1 K/mcL (0.0-0.6); Hematocrit 39.4 % (37.5-50.1); Immature Platelets 5.9 % (1.1-6.1); Lymphocytes # 1.4 K/mcL (0.6-4.6); Mean Corpuscular HGB Conc 34.5 g/dL (31.6-35.5); Mean Corpuscular Hemoglobin 31.2 pg (28.0-33.3); Mean Corpuscular Volume 90.4 fL (83.0-100.0); Mean Platelet Volume 10.1 fL (9.4-12.4); Monocytes # 0.6 K/mcL (0.0-1.3); Monocytes % 10.3 %; Neutrophils # 3.6 K/mcL (1.6-8.9); Platelet Count 84 K/mcL (140-400); Red Blood Count 4.36 M/mcL (4.19-5.50); Red Cell Distribution Width 13.2 % (11.5-14.5); White Blood Count 5.7 K/mcL (4.3-11.1)
[2019-02-18 01:52] LABS: BUN/Creatinine Ratio 24 (6-26); Blood Urea Nitrogen 25 mg/dL (8-23); Carbon Dioxide 25 mEq/L (23-29); Chloride 105 mEq/L (98-107); Chol/HDL Ratio 4.6 (0-4.9); Cholesterol 139 mg/dL (< 200); Glucose 122 mg/dL (70-105); HDL Cholesterol 30 mg/dL (40-59); LDL Cholesterol,Calculated 83 mg/dL (0-99); Magnesium 1.9 mg/dL (1.6-2.6); Osmolality,Calculated 292 (280-300); Sodium 138 mEq/L (136-145); Triglycerides 131 mg/dL (< 150); Troponin I 0.05 ng/mL (< 0.04); eGFR For African Americans > 60 (> 60); eGFR For Non-African Americans > 60 (> 60)
[2019-02-18] MEDS ORDERED: Morphine Sulfate 2 MG/ML SYRINGE IVP STA (06:30)
[2019-02-18] MEDS: Isosorbide MONOnitrate (24 HR) 60 MG TAB.ER.24H PO SCH ×2 (12:39→20:53)
[2019-02-18] MEDS: Ranolazine 500 MG TAB.ER.12H PO SCH ×2 (12:39→20:53)
[2019-02-18] MEDS: Heparin 25,000 UNIT/250 ML D5W 25,000 UNIT/250 ML IV.SOLN IVC SCH (12:40)
[2019-02-18] MEDS: Aspirin Enteric Coated 81 MG Tablet PO SCH (13:53)
[2019-02-18] MEDS: Nitroglycerin 25 MG/250 ML INFUS..BTL IVC SCH (19:18)
[2019-02-19 06:40] VITALS: BP 123/68
[2019-02-19] MEDS: Isosorbide MONOnitrate (24 HR) 60 MG TAB.ER.24H PO SCH (08:43)
[2019-02-19] MEDS: Ranolazine 500 MG TAB.ER.12H PO SCH (08:43)
[2019-02-19] MEDS: Aspirin Enteric Coated 81 MG Tablet PO SCH (08:43)
[2019-02-19] MEDS ORDERED: Aspirin Enteric Coated 81 MG Tablet PO SCH (09:00)
== END 2019-02-19 12:47 | disposition home or self-care (01) | DRG 282 ==
LOC: 3BNU 09:58 → EMEROOARM 09:58 → SUATTDRO 12:24 → 3BNU 13:40
PROVIDERS: ADMIT Internal Medicine; ATTEND Internal Medicine

== ENCOUNTER 2019-04-14 12:46 | Observation (INO) ==
[2019-04-14 14:05] LABS: Basophils % 0.1 %; Eosinophils % 0.1 %; Hematocrit 36.7 % (37.5-50.1); Hemoglobin 13.1 g/dL (12.9-16.9); Immature Granulocytes % 0.3 % (0-4); Lymphocytes # 2.1 K/mcL (0.6-4.6); Lymphocytes % 23.7 %; Mean Corpuscular HGB Conc 35.7 g/dL (31.6-35.5); Mean Corpuscular Hemoglobin 31.3 pg (28.0-33.3); Mean Corpuscular Volume 87.6 fL (83.0-100.0); Mean Platelet Volume 10.7 fL (9.4-12.4); Monocytes # 1.1 K/mcL (0.0-1.3); Monocytes % 13.2 %; Neutrophils # 5.4 K/mcL (1.6-8.9); Platelet Count 119 K/mcL (140-400); Red Blood Count 4.19 M/mcL (4.19-5.50); Red Cell Distribution Width 13.6 % (11.5-14.5); Segmented Neutrophils % 62.6 %; White Blood Count 8.7 K/mcL (4.3-11.1)
[2019-04-14 14:16] LABS: Alanine Aminotransferase 25 Units/L (7-52); Albumin 3.5 g/dL (3.5-5.7); Albumin/Globulin Ratio 1.5 (1.1-2.2); Alkaline Phosphatase 125 Units/L (34-104); Aspartate Amino Transferase 27 Units/L (13-39); BUN/Creatinine Ratio 13 (6-26); Bilirubin,Total 1.5 mg/dL (0.3-1.0); Blood Urea Nitrogen 13 mg/dL (8-23); C-Reactive Protein 51 mg/L (Less than 10); Carbon Dioxide 21 mEq/L (23-29); Chloride 106 mEq/L (98-107); Globulin 2.4 g/dL (2.4-3.5); Glucose 108 mg/dL (70-105); Osmolality,Calculated 285 (280-300); Potassium 3.8 mEq/L (3.5-5.1); Sodium 137 mEq/L (136-145); Total Protein 5.9 g/dL (6.4-8.9); Uric Acid 7.9 mg/dL (2.3-7.6); eGFR For African Americans > 60 (> 60); eGFR For Non-African Americans > 60 (> 60)
[2019-04-14] MEDS ORDERED: Clindamycin 600 MG/50 ML 600 MG/50 ML IV.SOLN IVPB ONE (14:36)
[2019-04-14] MEDS ORDERED: Acetaminophen 325 MG TABLET PO PRN ×2 (15:08→16:32)
[2019-04-14] MEDS ORDERED: Naloxone 0.4 MG/ML INJ IVP PRN (15:08)
[2019-04-14] MEDS: cephALEXin 500 MG CAPSULE PO SCH (20:23)
[2019-04-15] MEDS: *HR* HYDROcodone/Acet 5/325 mg TABLET PO PRN ×3 (00:40→18:48)
[2019-04-15 02:16] LABS: Eosinophils % 0.6 %; Red Cell Distribution Width 13.6 % (11.5-14.5); Segmented Neutrophils % 59.6 %
[2019-04-15 02:18] LABS: Basophils % 0.3 %; Hematocrit 36.9 % (37.5-50.1); Hemoglobin 12.5 g/dL (12.9-16.9); Immature Granulocytes % 0.1 % (0-4); Immature Platelets 3.3 % (1.1-6.1); Lymphocytes # 1.9 K/mcL (0.6-4.6); Lymphocytes % 27.5 %; Mean Corpuscular HGB Conc 33.9 g/dL (31.6-35.5); Mean Corpuscular Hemoglobin 31.1 pg (28.0-33.3); Mean Corpuscular Volume 91.8 fL (83.0-100.0); Mean Platelet Volume 10.5 fL (9.4-12.4); Monocytes # 0.8 K/mcL (0.0-1.3); Monocytes % 11.9 %; Neutrophils # 4.1 K/mcL (1.6-8.9); Platelet Count 100 K/mcL (140-400); Red Blood Count 4.02 M/mcL (4.19-5.50); White Blood Count 6.8 K/mcL (4.3-11.1)
[2019-04-15 02:35] LABS: BUN/Creatinine Ratio 15 (6-26); Blood Urea Nitrogen 13 mg/dL (8-23); Calcium 8.8 mg/dL (8.6-10.3); Carbon Dioxide 20 mEq/L (23-29); Chloride 106 mEq/L (98-107); Glucose 99 mg/dL (70-105); Osmolality,Calculated 282 (280-300); Potassium 3.7 mEq/L (3.5-5.1); Sodium 136 mEq/L (136-145); eGFR For African Americans > 60 (> 60); eGFR For Non-African Americans > 60 (> 60)
[2019-04-15] MEDS ORDERED: Morphine Sulfate 2 MG/ML SYRINGE IVP ONE (04:07)
[2019-04-15] MEDS: cephALEXin 500 MG CAPSULE PO SCH ×2 (08:58→21:27)
[2019-04-15] MEDS ORDERED: Colchicine 0.6 MG TABLET PO ONE (10:49)
[2019-04-15] MEDS ORDERED: Ketorolac 15 MG/ML VIAL IVP ONE (10:50)
[2019-04-15] MEDS: Colchicine 0.6 MG TABLET PO SCH (21:29)
[2019-04-15] MEDS: Ranolazine 500 MG TAB.ER.12H PO SCH (21:29)
[2019-04-15] MEDS: Isosorbide MONOnitrate (24 HR) 60 MG TAB.ER.24H PO SCH (21:29)
[2019-04-16] MEDS: Isosorbide MONOnitrate (24 HR) 60 MG TAB.ER.24H PO SCH ×2 (08:58→19:36)
[2019-04-16] MEDS: cephALEXin 500 MG CAPSULE PO SCH ×2 (08:58→19:36)
[2019-04-16] MEDS: Colchicine 0.6 MG TABLET PO SCH ×2 (08:58→19:36)
[2019-04-16] MEDS: Ranolazine 500 MG TAB.ER.12H PO SCH (08:58)
[2019-04-16] MEDS ORDERED: Aspirin 81 MG TAB.CHEW PO SCH (09:00)
[2019-04-16] MEDS ORDERED: *HR* HYDROcodone/Acet 5/325 mg TABLET PO PRN (09:52)
[2019-04-16] MEDS ORDERED: Sennosides/Docusate Sodium TABLET PO PRN (09:52)
[2019-04-17 02:29] LABS: Bilirubin,Urine Negative (Negative); Blood,Urine Negative (Negative); Clarity,Urine Clear (Clear); Color,Urine Yellow (Yellow); Glucose,Urine (UA) Normal (Normal); Ketones,Urine Negative (Negative); Leukocyte Esterase,Urine Negative (Negative); Nitrite,Urine Negative (Negative); Protein,Urine Negative (Neg-Trace); Specific Gravity,Urine 1.013 (1.010-1.025); Urobilinogen,Urine Normal (Normal)
[2019-04-17 06:56] VITALS: BP 114/66
[2019-04-17] MEDS: cephALEXin 500 MG CAPSULE PO SCH (08:05)
[2019-04-17] MEDS: Colchicine 0.6 MG TABLET PO SCH (08:06)
[2019-04-17] MEDS: Isosorbide MONOnitrate (24 HR) 60 MG TAB.ER.24H PO SCH (08:07)
[2019-04-17] MEDS ORDERED: Sennosides/Docusate Sodium TABLET PO SCH (09:30)
== END 2019-04-17 13:27 | disposition home or self-care (01) ==
LOC: EMEROOARM 12:46 → 3ANU 12:46 → SUATTDRO 16:25 → 3ANU 17:00
PROVIDERS: ADMIT Internal Medicine; ATTEND Internal Medicine